=== PATIENT | male | born 1970 | race Caucasian/White ===

== ENCOUNTER 2020-07-22 07:49 | Outpatient (REF) | payer OTHER, SELFPAY | END 2020-07-22 07:50 | disposition home or self-care (01) | LOC: HO.LAB 07:49 | PROVIDERS: Visit Provider Internal Medicine | DX: Z20.828 Contact with and (suspected) exposure to other viral communicable diseases (principal) | CPT/HCPCS: C9803; U0003 ==

== ENCOUNTER 2020-12-18 06:12 | Outpatient (REF) | payer OTHER, SELFPAY ==
[2020-12-18 12:03] LABS: Alanine Aminotransferase 33 U/L (0-40); Albumin Level 4.3 g/dL (3.5-5.0); Alkaline Phosphatase 61 U/L (39-117); Anion Gap 13 (12-20); Aspartate Amino Transferase 19 U/L (5-37); Bilirubin Total 0.5 mg/dL (0.0-1.0); Blood Urea Nitrogen 14 mg/dL (9-16); Calcium 9.1 mg/dL (8.4-10.2); Carbon Dioxide 24 mmol/L (22-29); Chloride 105 mmol/L (96-108); Cholesterol 120 mg/dL; Estimated Glomerular Filt Rate > 60; Glucose Fasting 103 mg/dL (60-99); HDL Cholesterol 32 mg/dL; LDL Cholesterol Calculated 76 mg/dl; Potassium 4.4 mmol/L (3.3-5.1); Sodium 138 mmol/L (135-145); Triglycerides 62 mg/dL
[2020-12-18 12:24] LABS: TSH reflex Free T4 1.22 uIU/mL (0.32-4.0)
== END 2020-12-18 06:13 | disposition home or self-care (01) ==
LOC: HO.HMGCLDS 06:12
PROVIDERS: PCP Nurse Practitioner Family; Visit Provider Nurse Practitioner Family
DX: Z00.00 Encounter for general adult medical examination without abnormal findings (principal); Z13.220 Encounter for screening for lipoid disorders; Z13.29 Encounter for screening for other suspected endocrine disorder
CPT/HCPCS: 36415; 80053; 80061; 84443

== ENCOUNTER → 2020-12-30 13:47 | Outpatient (REF) | payer OTHER, SELFPAY ==
--- NOTE | 2020-12-30 14:05 | ECG_ITS ---
Hook-up date: 2020-12-30 14:00:00 Duration: 21:09:00 Test Indications: PALPITATIONS Medications: 48826 QRS complexes 1 Ventricular ectopics which represent <1 % of total QRS comp. 5 Supraventricular ectopics which represent <1 % of total QRS comp. * Paced QRS complexs which represent % of total QRS comp. VENTRICULAR ECTOPY 1 Isolated 0 Bigeminal Cycles 0 Couplets 0 Runs 0 Beats in Runs * Beats LONGEST at * BPM at :: -- * Beats FASTEST at * BPM at :: -- SUPRAVENTRICULAR ECTOPY 5 Isolated 0 Couplets 0 Runs 0 Beats in Runs * Beats LONGEST at * BPM at :: -- * Beats FASTEST at * BPM at :: -- HEART RATES 50 MIN at 01:04:29 2020-12-31 73 AVG 114 MAX at 05:52:17 2020-12-31 LONGEST RR 1.3040 secs at 01:04:23 2020-12-31 S-T LEVELS Channel 1 - 128 mm at 14:00:00 2020-12-30 - 128 mm at 14:00:00 2020-12-30 Channel 2 - 128 mm at 14:00:00 2020-12-30 - 128 mm at 14:00:00 2020-12-30 Channel 3 - 128 mm at 03:31:91 -- - 128 mm at 03:31:91 Underlying rhythm is sinus; Average rate 73/min; range 50-114/min; Very rare ectopy- (PAC-5; PVC-1) ; No sustained arrhythmias; Patient did not report any symptoms in the diary Referred By: Imer Jin Overread By: ISAEL MEANS
== END ==
LOC: HO.CARD 13:47
PROVIDERS: PCP Nurse Practitioner Family; Visit Provider Nurse Practitioner Family
DX: R00.2 Palpitations (principal)
CPT/HCPCS: 93225; 93226

== ENCOUNTER 2021-01-06 16:29 | Outpatient (REF) | payer OTHER, SELFPAY ==
--- NOTE | ~2021-01-06 | US_ITS ---
EXAMINATION: US SCROTUM CLINICAL INFORMATION: Scrotal pain. COMPARISON: Ultrasound scrotum 01/31/2009 TECHNIQUE: A sonogram of the scrotum was performed assessing pan-scale appearance and color Doppler flow. Spectral Doppler analysis of the arterial and venous flow were performed in the testes bilaterally. FINDINGS: RIGHT: Right testicle measures 3.6 x 2.0 x 2.8 cm, volume 10.4 mL. There is an anechoic cyst measuring 0.6 x 0.6 x 0.7 cm. Spectral Doppler analysis of the arterial and venous flow is normal in the right testis. Right epididymal head is normal in size. No right hydrocele or varicocele is seen. Right epididymal Doppler flow is normal. LEFT: Left testicle measures 2.9 x 2.3 x 2.9 cm, volume 9.8 mL. No focal testicular parenchymal lesions are visualized. Spectral Doppler analysis of the arterial and venous flow is normal in the left testis. Left epididymal head is normal in size. No left varicocele is seen. There is a small left hydrocele. Left epididymal Doppler flow is normal. US/US scrotum IMPRESSION: Right testicular small cyst. Otherwise, right testis and epididymis is unremarkable. Unremarkable left testis except for a small hydrocele. Left epididymis is unremarkable.
== END 2021-01-06 16:30 | disposition home or self-care (01) ==
LOC: HO.US 16:29
PROVIDERS: PCP Nurse Practitioner Family; Visit Provider Nurse Practitioner Family
DX: N50.82 Scrotal pain (principal)
CPT/HCPCS: 76870

== ENCOUNTER → 2021-02-04 14:51 | Outpatient (BNVA) | payer OTHER, SELFPAY | PROVIDERS: PCP Nurse Practitioner Family; Referring Provider Nurse Practitioner Family; Visit Provider Physician Assistant ==

== ENCOUNTER 2021-03-13 10:25 | Day surgery (SDC) | payer OTHER, SELFPAY ==
[2021-03-06 15:03] VITALS: BMI 33.6
--- NOTE | 2021-03-12 08:57 | HO.ANESPROP2 ---
Documented by User: Dona Dye 03/12/21 09:02 HPI - Anesthesia Eval Consult details Narrative: 50yo M for Colonoscopy PMFSH Active Problems Active Problems: All Active Problems (Updated 02/05/21 @ 09:23 by Shayy Monge PA-C) Scrotal pain (Acute) Whole body pain (Acute) Palpitations (Acute) Erectile dysfunction (Acute) Screening for colon cancer (Acute) HTN (hypertension) (Acute) Physical exam (Acute) Past Medical History Medical History Hernia Hypertension Family History Family History Father Heart attack Paternal Grandfather Heart attack Mother Diabetes Maternal Grandmother Colon cancer Social History Social History Household Members: Spouse Alcohol intake: never Patient Tobacco Use Status: Never used Tobacco Advance Directives: No Advance Directives Information Provided: No Current occupational status: employed 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 [employer] Allergies Allergy/AdvReac Type Severity Reaction Status Date / Time No Known Allergies Allergy Unverified 12/10/20 16:24 Home Medications Medication Instructions Recorded Confirmed Last Taken Type aspirin 81 mg tablet,delayed 81 mg PO DAILY 12/10/20 02/04/21 Unknown History release Exam Exam Date and Time: March 12, 2021 0857 Height,Weight and Vital Signs: Height 5 ft 11 in Weight 109.316 kg Pertinent Lab Results Pertinent Lab Results: Laboratory Tests 11/17/18 12/18/20 08:03 06:18 WBC 4.6 L Hgb 15.5 Hct 45.0 Plt Count 246 Sodium 138 Potassium 4.4 Chloride 105 Carbon Dioxide 24 BUN 14 Creatinine 0.79 1322 Narrative Narrative: Holter 12/2020 Underlying rhythm is sinus; Average rate 73/min; range 50-114/min; Very rare ectopy- (PAC-5; PVC-1) ; No sustained arrhythmias; Patient did not report any symptoms in the diary Assessment and Plan Assessment Anesthesia Assessment: Chart Reviewed Documented by User: Yuliet Waylon 03/13/21 10:38 PMF Past Medical History Medical History Hernia Hypertension Family History Family History Father Heart attack Paternal Grandfather Heart attack Mother Diabetes Maternal Grandmother Colon cancer Social History Social History Household Members: Spouse Alcohol intake: never Patient Tobacco Use Status: Never used Tobacco Advance Directives: No Advance Directives Information Provided: No Current occupational status: employed 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 Meds Allergies Allergy/AdvReac Type Severity Reaction Status Date / Time No Known Allergies Allergy Unverified 12/10/20 16:24 Home Medications Medication Instructions Recorded Confirmed Last Taken Type aspirin 81 mg tablet,delayed 81 mg PO DAILY 12/10/20 02/04/21 Unknown History release Exam Airway Mallampati Class: II TM Dist: >3cm Neck ROM: Full Heart: rrr Lungs: cta Assessment and Plan Assessment Anesthesia Assessment: Anesthesia Plan Discussed and Chart Reviewed Final Anesthetic Review NPO: Yes ASA Class: II Final Preanesthetic Review: No Changes in Pt Med Stat and Consent Obtained/Reviewed Patient Risk: Intermediate Procedure Risk: Intermediate Anesthetic Plan Anesthetic Plan: MAC: Disposition: Standard PACU
--- NOTE | 2021-03-13 10:49 | W.PM.OPN ---
Operative Note Operative Note Date of Service: 03/13/21 Narrative: Pre-op diagnosis: colon cancer screening, family history colon cancer (Mat GM in her 60's) Post-op diagnosis: other (Colon polyps, diverticulosis, hemorrhoids) Procedure: COLONOSCOPY TILL CECUM WITH BIOPSY AND SNARE POLYPECTOMY Consent: Indications for the procedure and potential complications of bleeding, perforation, reaction to medications and missed diagnosis were discussed with the patient and informed consent was obtained. Instrument: Olympus PCF H 190 L variable stiffness pediatric colonoscope Monitoring: Vital signs and clinical assessment, intermittent blood pressure monitoring, continuous EKG monitoring, Pulse oximetry and Carbon Dioxide monitoring were done throughout the procedure. Colon withdrawl time was 27 minutes. Procedure: The patient was placed in the left lateral decubitis position and pre-procedure medications were administered. After a digital rectal examination of the ano-rectum, the video colonoscope was inserted into the rectum and advanced through the colon to the cecum. The colonoscope was slowly withdrawn in a retrograde panoramic fashion and the colon mucosa was carefully examined including a retroflexed view of the rectum. Findings and interventions are described below. Procedure Difficulty: Without difficulty. There was excessive spasm in the colon during withdrawal of the colonoscopy Findings: Terminal Ileum: Not evaluated Cecum: Normal Ascending Colon: A 12-15 mm sessile polyp removed with a hot snare Transverse Colon: A 4-5 mm deminutive appearing polyp removed with the cold biopsy Descending Colon: moderate diverticulosis Sigmoid Colon: Moderate diverticulosis Rectum: A 12-15 mm sessile polyp removed with a hot snare Ano-rectum: Moderate internal hemorrhoids Colon preparation: Good after copious irrigation Impression and Post Procedure Diagnosis: Colonoscopy Findings: Three small to medium sized polyps removed Moderate diverticulosis seen in the left colon Moderate hemorrhoids on retroflexed exam. Plan: Await pathology results Patient has an appointment on 03/26/21 in the GI Clinic with JACK Andrade. Repeat Colonoscopy interval based on path results - in 3 years if polyps are adenomatous and 5 years if polyps are hyperplastic due to family hx of colon cancer. Above findings were reviewed with the patient and colon polyps and diverticulosis handouts were given in the discharge area Surgeon: Chacha Villegas MD Anesthesia: MAC (Adele Hunter CRNA) Was an Supervisor Delivery Department used for this Procedure?: Yes Supervisor Delivery Department: Luciano Jules Estimated blood loss (mL): 0 Pathology: other (A- ASCENDING COLON POLYP B- TRANSVERSE COLON POLYP C- RECTAL POLYP) Condition: stable Disposition: PACU
--- NOTE | 2021-03-13 10:49 | MHC.SHP ---
Pre-Procedural Eval Section A Date of Service: 03/13/21 The patient is an INPATIENT: No The History & Physical has been completed within 30 days and I have reviewed it.: No Section B Chief Complaint: Screening Details of Present Illness: colon cancer screening, family history of colon cancer (GM in her 60's) Relevant Family History (Specify if Yes): Yes Relevant Social History: None Present Medications: see Short Stay Collaborative assessment Medical History: Significant History (Hernia Hypertension) History of Previous Operations: No relevant previous surgery Allergies: Allergies Allergy/AdvReac Type Severity Reaction Status Date / Time No Known Allergies Allergy Verified 03/13/21 10:38 Review of Systems Sugical H&P ROS: Negative: Constitution, Cardiovascular, Respiratory and Gastrointestinal Exam Surgical H&P Exam: Normal: Heart, Normal: Lungs, Normal: Extremities and Normal: Abdomen Plan Diagnosis/Plan: Unchanged I have reviewed the history and physical and performed a pertinent physical examination on my patient. No changes have occurred unless specified.
[2021-03-13 10:51] VITALS: BP 128/90; PULSE 86; RESP 20; TEMP 37.6; O2SAT 97
[2021-03-13] MEDS: Lactated Ringers 1,000 ML 100 ML IVCONT (11:10)
[2021-03-13 12:53] VITALS: BP 99/62; PULSE 94; RESP 16; TEMP 36.8; O2SAT 94
[2021-03-13 13:08] VITALS: BP 113/76; PULSE 84; RESP 16; TEMP 36.8; O2SAT 97
== END 2021-03-13 13:33 | disposition home or self-care (01) ==
PROVIDERS: PCP Nurse Practitioner Family; Visit Provider Internal Medicine Gastroenterology
PROC: 0DJD8ZZ Inspection of Lower Intestinal Tract, Via Natural or Artificial Opening Endoscopic (ICD-10-PCS; CPT 45378; principal; 2021-03-13 11:30)
DX: Z12.11 Encounter for screening for malignant neoplasm of colon (principal); D12.2 Benign neoplasm of ascending colon; D12.8 Benign neoplasm of rectum; K63.5 Polyp of colon; K57.30 Diverticulosis of large intestine without perforation or abscess without bleeding; K64.8 Other hemorrhoids; I10 Essential (primary) hypertension; Z79.82 Long term (current) use of aspirin; Z79.899 Other long term (current) drug therapy
CPT/HCPCS: 45385; 45380; 88305; J2405

== ENCOUNTER → 2021-03-26 12:05 | Outpatient (BNVA) | payer OTHER, SELFPAY | PROVIDERS: PCP Nurse Practitioner Family; Visit Provider Physician Assistant ==

== ENCOUNTER 2021-06-29 16:12 | Emergency (ER) | payer OTHER, SELFPAY ==
--- NOTE | ~2021-06-29 | US_ITS ---
EXAMINATION: US VENOUS ULTRASOUND WITH DOPPLER LOWER EXTREMITY, LEFT CLINICAL INFORMATION: Swelling. COMPARISON: None TECHNIQUE: Ultrasound of the deep veins is performed from the hip to the calf with compression sonography and color and pulse Doppler assessment. Spectral analysis with color-flow imaging is performed. FINDINGS: There is normal venous compression and respiratory variation and augmented flow. The visualized common femoral vein, superficial femoral vein, profunda femoral vein, popliteal vein, and the trifurcation region shows no evidence of deep venous thrombosis. There is no significant popliteal fossa cyst. In the medial calf there is a hypoechoic linear area at the midcalf which on color Doppler does not demonstrate vascular flow. This area measures approximately 4 x 1 cm in size. Could be intermuscular hematoma in appropriate clinical setting. If the patient's symptoms persist, followup ultrasound in 5 days 7 days might be of value to exclude proximal propagation from a non-visualized calf vein. US/US venous duplex LE LT IMPRESSION: 1. No DVT demonstrated in the left lower extremity. 2. Hypoechoic area in the medial calf musculature. Possible intermuscular hematoma.
[2021-06-29 16:53] VITALS: BP 146/101; PULSE 73; RESP 16; TEMP 37.1; O2SAT 95; BMI 34.4
[2021-06-29 18:26] LABS: MANUAL DIFF FLAG NO
--- NOTE | 2021-06-29 18:27 | ED.GENADULT ---
HPI - General Adult General Chief complaint: Extremity Problem <JACK Garcia Last Filed: 06/29/21 19:08> Stated complaint: lower left leg pain and swollen <JACK Garcia Last Filed: 06/29/21 19:08> Time Seen by Provider: 06/29/21 18:06 <JACK Garcia Last Filed: 06/29/21 19:08> Source: patient <JACK Garcia Last Filed: 06/29/21 19:08> Mode of arrival: ambulatory <JACK Garcia Last Filed: 06/29/21 19:08> Limitations: no limitations <JACK Garcia Last Filed: 06/29/21 19:08> History of Present Illness HPI narrative: Patient presents to ED for left leg pain and swelling. Patient was referred from Urgent Care for ultrasound to rule out DVT. Patient states father from a blood clot. Patient presently denies any chest pain or shortness of breath. Patient denies any recent trauma to lower extremity, numbness/tingling, or any drug injection. Patient denies any recent long travel, recent surgery, recent trauma, history of blood clots, or any estrogen hormonal use. Patient denies any history of cancer. <JACK Garcia Last Filed: 06/29/21 19:08> Related Data Home medications: Home Medications Medication Instructions Recorded Confirmed aspirin 81 mg tablet,delayed 81 mg PO DAILY 12/10/20 03/26/21 release (Adult Low Dose Aspirin) Previous Rx's Medication Instructions Recorded amlodipine 5 mg tablet 5 mg PO DAILY #90 tab 01/12/21 sildenafil 25 mg tablet 25 mg PO DAILY PRN 10 Days #10 tab 06/05/21 <JACK Garcia Last Filed: 06/29/21 19:08> Allergies/adverse reactions: Allergies Allergy/AdvReac Type Severity Reaction Status Date / Time No Known Allergies Allergy Verified 06/29/21 17:58 <JACK Garcia Last Filed: 06/29/21 19:08> Review of Systems Review of Systems: Yes all other systems are reviewed and are negative <JACK Garcia Last Filed: 06/29/21 19:08> Constitutional: Constitutional: Reports as per HPI and Reports no additional constitutional complaints <JACK Garcia Last Filed: 06/29/21 19:08> Eyes: Eyes: Reports as per HPI and Reports no additional eye complaints <JACK Garcia Last Filed: 06/29/21 19:08> ENT: Reports system reviewed and no additional complaints, except as documented and Reports as per HPI <JACK Garcia Last Filed: 06/29/21 19:08> Cardiovascular: Cardiovascular: Reports as per HPI and Reports no additional cardiovascular complaints <JACK Garcia Last Filed: 06/29/21 19:08> Respiratory: Respiratory: Reports as per HPI and Reports no additional respiratory complaints <JACK Garcia Last Filed: 06/29/21 19:08> Gastrointestinal: Gastrointestinal: Reports as per HPI and Reports no additional gastrointestinal complaints <JACK Garcia Last Filed: 06/29/21 19:08> Genitourinary: Genitourinary: Reports no additional male genitourinary complaints and Reports as per HPI <JACK Garcia Last Filed: 06/29/21 19:08> Musculoskeletal: Musculoskeletal: Reports no additional musculoskeletal complaints <JACK Garcia Last Filed: 06/29/21 19:08> Comments: left leg swelling <JACK Garcia Last Filed: 06/29/21 19:08> Neurologic: Reports system reviewed and no additional complaints, except as documented and Reports as per HPI <JACK Garcia Last Filed: 06/29/21 19:08> Psychiatric: Psychiatric: Reports no additional psychiatric complaints and Reports as per HPI <JACK Garcia Last Filed: 06/29/21 19:08> [facility] Past Medical History Medical History: Medical History Hernia Hypertension <JACK Garcia Last Filed: 06/29/21 19:08> Family History Family History: Family History Father Heart attack Paternal Grandfather Heart attack Mother Diabetes Maternal Grandmother Colon cancer <JACK Garcia Last Filed: 06/29/21 19:08> Social History Social History: Social History Household Members: Spouse Alcohol intake: never Patient Tobacco Use Status: Never used Tobacco Advance Directives: No Advance Directives Information Provided: Yes Current occupational status: employed 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 <JACK Garcia Last Filed: 06/29/21 19:08> Physical Exam Vital Signs: Vital Signs: Last Vital Signs Temp 98.7 F 06/29/21 16:53 Pulse 73 06/29/21 16:53 Resp 16 06/29/21 16:53 BP 146/101 H 06/29/21 16:53 Pulse Ox 95 06/29/21 16:53 Body Mass Index 34.4 <JACK Garcia Last Filed: 06/29/21 19:08> Vital Signs: Last Vital Signs Temp 98.7 F 06/29/21 16:53 Pulse 73 06/29/21 16:53 Resp 16 06/29/21 16:53 BP 146/101 H 06/29/21 16:53 Pulse Ox 95 06/29/21 16:53 Body Mass Index 34.4 <JACK Hoyos - Last Filed: 06/29/21 21:02> Const: General: cooperative, healthy appearing, comfortable, no acute distress, well developed, alert, awake and Physically active <JACK Garcia Last Filed: 06/29/21 19:08> Orientation/consciousness: patient oriented x3 <JACK Garcia Last Filed: 06/29/21 19:08> HENMT: Head: Yes normal to inspection, Yes No palpable skull fracture present, Yes normocephalic, Yes atraumatic and No abrasion <JACK Garcia Last Filed: 06/29/21 19:08> Eyes: General: appearance normal, both eyes and all related structures <JACK Garcia Last Filed: 06/29/21 19:08> Neck: Neck: Yes normal visual inspection, Yes full ROM, Yes no lymphadenopathy, Yes no meningeal signs, Yes trachea midline, Yes supple, No anterior neck swelling and No tender <JACK Garcia Last Filed: 06/29/21 19:08> Chest: Chest palpation & inspection: normal inspection of the chest and normal palpation of entire chest wall <Khari De Luna JACK Last Filed: 06/29/21 19:08> Resp: Effort & Inspection: normal respiratory effort and able to speak in complete sentences <Khari De Luna JACK Last Filed: 06/29/21 19:08> Auscultation: clear to auscultation bilaterally <JACK Garcia Last Filed: 06/29/21 19:08> Cardio: Jugular venous distension: no JVD <Khari De Luna JACK Last Filed: 06/29/21 19:08> Heart sounds: S1 normal heart sound present and S2 normal heart sound present <Khari De Luna JACK Last Filed: 06/29/21 19:08> GI: Inspection: Yes normal to inspection and No abdominal wall ecchymosis <Khari De Luna [facility] Last Filed: 06/29/21 19:08> Palpation (GI): Soft to palpation, not firm, nontender, no guarding and not rigid <Khari De Luna JACK Last Filed: 06/29/21 19:08> : General: No CVA tenderness and Yes no CVA tenderness <Khari De Luna JACK Last Filed: 06/29/21 19:08> Back/Spine/Pelvis: Back: no CVA tenderness, No CVA tenderness and No back tenderness <Khari De Luna JACK Last Filed: 06/29/21 19:08> Skin: General skin exam: no rashes or lesions noted and elasticity normal <Khari De Luna JACK Last Filed: 06/29/21 19:08> Neuro: General: patient oriented x3, gait normal, no meningeal signs and CN's II-XI intact bilaterally <Khari De Luna JACK Last Filed: 06/29/21 19:08> Cranial nerves: Yes CN's II-XII intact bilaterally <Khari De Luna JACK Last Filed: 06/29/21 19:08> Extrem: Other: Positive for left lower extremity swelling with calf tenderness on palpation. Left lower extremity negative for any redness, warmth, hotness, coldness, ecchymosis, bluish black discoloration of toes, open wounds, pus discharge, or foul odor. Motor/neuro/vascular exam intact. Right lower extremity normal and not swollen. Motor/neuro/vascular exam of right lower extremity intact. <JACK Garcia - Last Filed: 06/29/21 19:08> General: Yes normal to inspection and Yes full ROM <JACK Garcia - Last Filed: 06/29/21 19:08> Psych: Appearance: grossly normal, well kempt and not disheveled <JACK Garcia - Last Filed: 06/29/21 19:08> Course Course Course Narrative: Patient will have basic labs and be sent for ultrasound to rule out DVT. History physical exam does not indicate any fracture, cellulitis, or CHF. <JACK Garcia - Last Filed: 06/29/21 19:08> Reevaluation(s) Reevaluation #1: Case signed out to JACK Camacho to follow up with labs and US. <JACK Garcia - Last Filed: 06/29/21 19:08> Time: 18:57 <JACK Garcia - Last Filed: 06/29/21 19:08> Medical Decision Making MDM Narrative Medical decision making narrative: Contusion <JACK Garcia - Last Filed: 06/29/21 19:08> Lab Data Result diagrams: : 06/29/21 18:20 06/29/21 18:20 <JACK Garcia - Last Filed: 06/29/21 19:08> Labs: Lab Results 06/29/21 06/29/21 06/29/21 Range/Units 18:20 18:20 18:20 WBC 7.1 (4.8-10.8) X10*3/uL RBC 5.13 (4.60-5.80) X10*6/uL Hgb 15.2 (14.0-18.0) g/dl Hct 45.2 (42-52) % MCV 88.1 (80-98) fL MCH 29.6 (27.0-33.0) pg MCHC 33.6 (31.0-36.0) g/dl RDW 13.7 (11.0-16.0) % Plt Count 291 (160-400) X10*3/uL MPV 10.0 (9.4-12.4) fL Immature Gran % (Auto) 0.6 H (0.0-0.4) % Neut % (Auto) 52.8 (45-73) % Lymph % (Auto) 31.4 (20-40) % [place] % (Auto) 11.9 H (2-11) % Eos % (Auto) 2.0 (0-4) % Baso % (Auto) 1.3 (0-2) % Lymph # (Auto) 2.2 (1.2-4.9) X10*3/uL [place] # (Auto) 0.8 (0.1-1.2) X10*3/uL Eos # (Auto) 0.1 (0.0-0.4) X10*3/uL Baso # (Auto) 0.1 (0.0-0.2) X10*3/uL Abs Immat Gran (auto) 0.04 H (0.00-0.03) X10*3/uL Absolute Neuts (auto) 3.8 (2.0-8.3) X10*3/uL Absolute Nucleated RBC 0.000 (0.0-0.012) X10*3/uL Nucleated RBC % (auto) 0.0 (0.0-0.2) /100WBC PT 11.2 (9.9-13.0) SEC INR 1.0 (0.9-1.1) APTT 35.6 (24.1-38.0) SEC Sodium 140 (135-145) mmol/L Potassium 4.0 (3.3-5.1) mmol/L Chloride 109 H (96-108) mmol/L Carbon Dioxide 23 (22-29) mmol/L Anion Gap 12 (12-20) BUN 11 (9-16) mg/dL Creatinine 0.73 (0.5-1.4) mg/dL Estim Creat Clear Calc 149.5 Estimated GFR > 60 Random Glucose 90 (60-115) mg/dL Calcium 9.3 (8.4-10.2) mg/dL Total Bilirubin 0.6 (0.0-1.0) mg/dL AST 18 (5-37) U/L ALT 31 (0-40) U/L Alkaline Phosphatase 63 (39-117) U/L Total Protein 6.9 (6.5-8.0) g/dL Albumin 4.3 (3.5-5.0) g/dL <JACK Garcia - Last Filed: 06/29/21 19:08> Lab Results 06/29/21 06/29/21 06/29/21 Range/Units 18:20 18:20 18:20 WBC 7.1 (4.8-10.8) X10*3/uL RBC 5.13 (4.60-5.80) X10*6/uL Hgb 15.2 (14.0-18.0) g/dl Hct 45.2 (42-52) % MCV 88.1 (80-98) fL MCH 29.6 (27.0-33.0) pg MCHC 33.6 (31.0-36.0) g/dl RDW 13.7 (11.0-16.0) % Plt Count 291 (160-400) X10*3/uL MPV 10.0 (9.4-12.4) fL Immature Gran % (Auto) 0.6 H (0.0-0.4) % Neut % (Auto) 52.8 (45-73) % Lymph % (Auto) 31.4 (20-40) % [place] % (Auto) 11.9 H (2-11) % Eos % (Auto) 2.0 (0-4) % Baso % (Auto) 1.3 (0-2) % Lymph # (Auto) 2.2 (1.2-4.9) X10*3/uL [place] # (Auto) 0.8 (0.1-1.2) X10*3/uL Eos # (Auto) 0.1 (0.0-0.4) X10*3/uL Baso # (Auto) 0.1 (0.0-0.2) X10*3/uL Abs Immat Gran (auto) 0.04 H (0.00-0.03) X10*3/uL Absolute Neuts (auto) 3.8 (2.0-8.3) X10*3/uL Absolute Nucleated RBC 0.000 (0.0-0.012) X10*3/uL Nucleated RBC % (auto) 0.0 (0.0-0.2) /100WBC PT 11.2 (9.9-13.0) SEC INR 1.0 (0.9-1.1) APTT 35.6 (24.1-38.0) SEC Sodium 140 (135-145) mmol/L Potassium 4.0 (3.3-5.1) mmol/L Chloride 109 H (96-108) mmol/L Carbon Dioxide 23 (22-29) mmol/L Anion Gap 12 (12-20) BUN 11 (9-16) mg/dL Creatinine 0.73 (0.5-1.4) mg/dL Estim Creat Clear Calc 149.5 Estimated GFR > 60 Random Glucose 90 (60-115) mg/dL Calcium 9.3 (8.4-10.2) mg/dL Total Bilirubin 0.6 (0.0-1.0) mg/dL AST 18 (5-37) U/L ALT 31 (0-40) U/L Alkaline Phosphatase 63 (39-117) U/L Total Protein 6.9 (6.5-8.0) g/dL Albumin 4.3 (3.5-5.0) g/dL <JACK Hoyos - Last Filed: 06/29/21 21:02> Discharge Plan Discharge Clinical Impression: Leg swelling <JACK Garcia - Last Filed: 06/29/21 19:08> Prescriptions: No Action amlodipine 5 mg tablet 5 mg PO DAILY Qty: 90 RF: 1 sildenafil 25 mg tablet 25 mg PO DAILY PRN (Reason: sexual activity) 10 Days Qty: 10 RF: 4 aspirin [Adult Low Dose Aspirin] 81 mg tablet,delayed release (DR/EC) 81 mg PO DAILY RF: 0 <JACK Garcia - Last Filed: 06/29/21 19:08>
[2021-06-29 18:28] LABS: Basophils Absolute Auto 0.1 X10*3/uL (0.0-0.2); Basophils Percent Auto 1.3 % (0-2); Eosinophils Absolute Auto 0.1 X10*3/uL (0.0-0.4); Hematocrit 45.2 % (42-52); Hemoglobin 15.2 g/dl (14.0-18.0); Imm Gran Abs Auto 0.04 X10*3/uL (0.00-0.03); Imm Gran Pct Auto 0.6 % (0.0-0.4); Lymphocytes Absolute Auto 2.2 X10*3/uL (1.2-4.9); Lymphocytes Percent Auto 31.4 % (20-40); Mean Corpuscular HGB Conc 33.6 g/dl (31.0-36.0); Mean Corpuscular Hemoglobin 29.6 pg (27.0-33.0); Mean Corpuscular Volume 88.1 fL (80-98); Monocytes Absolute Auto 0.8 X10*3/uL (0.1-1.2); Monocytes Percent Auto 11.9 % (2-11); Neutrophils Absolute Auto 3.8 X10*3/uL (2.0-8.3); Neutrophils Percent Auto 52.8 % (45-73); Platelet Count 291 X10*3/uL (160-400); Red Blood Count 5.13 X10*6/uL (4.60-5.80); Red Cell Distribution Width 13.7 % (11.0-16.0); White Blood Count 7.1 X10*3/uL (4.8-10.8)
[2021-06-29 18:32] LABS: Prothrombin Time 11.2 SEC (9.9-13.0)
[2021-06-29 18:35] LABS: Partial Thromboplastin Time 35.6 SEC (24.1-38.0)
[2021-06-29 18:42] LABS: Alanine Aminotransferase 31 U/L (0-40); Albumin Level 4.3 g/dL (3.5-5.0); Alkaline Phosphatase 63 U/L (39-117); Anion Gap 12 (12-20); Aspartate Amino Transferase 18 U/L (5-37); Bilirubin Total 0.6 mg/dL (0.0-1.0); Blood Urea Nitrogen 11 mg/dL (9-16); Calcium 9.3 mg/dL (8.4-10.2); Carbon Dioxide 23 mmol/L (22-29); Chloride 109 mmol/L (96-108); Creatinine Clr Calc Pharmacy 149.5; Estimated Glomerular Filt Rate > 60; Glucose Random 90 mg/dL (60-115); Sodium 140 mmol/L (135-145); Total Protein 6.9 g/dL (6.5-8.0)
== END 2021-06-29 21:41 | disposition home or self-care (01) ==
PROVIDERS: Physician Assistant; Emergency Provider Emergency Medicine; PCP Nurse Practitioner Family
DX: M79.89 Other specified soft tissue disorders (principal); M79.605 Pain in left leg; I10 Essential (primary) hypertension
CPT/HCPCS: 36415; 80053; 85025; 85610; 85730; 93971; 99283; 99284

== ENCOUNTER → 2021-07-08 08:28 | Outpatient (BNVA) | payer OTHER, SELFPAY | PROVIDERS: PCP Nurse Practitioner Family; Visit Provider Urology ==

== ENCOUNTER 2022-06-11 07:20 | Outpatient (REF) | payer OTHER, SELFPAY ==
[2022-06-11 11:17] LABS: MANUAL DIFF FLAG NO
[2022-06-11 11:34] LABS: Basophils Absolute Auto 0.1 X10*3/uL (0.0-0.2); Basophils Percent Auto 1.6 % (0-2); Eosinophils Absolute Auto 0.1 X10*3/uL (0.0-0.4); Eosinophils Percent Auto 2.8 % (0-4); Hematocrit 45.5 % (42.0-52.0); Hemoglobin 14.9 g/dl (14.0-18.0); Imm Gran Abs Auto 0.02 X10*3/uL (0.00-0.03); Imm Gran Pct Auto 0.5 % (0.0-0.4); Lymphocytes Absolute Auto 1.5 X10*3/uL (1.2-4.9); Lymphocytes Percent Auto 34.9 % (20-40); Mean Corpuscular HGB Conc 32.7 g/dl (31.0-36.0); Mean Corpuscular Hemoglobin 29.3 pg (27.0-33.0); Mean Corpuscular Volume 89.4 fL (80.0-98.0); Mean Platelet Volume 10.6 fL (9.4-12.4); Monocytes Absolute Auto 0.5 X10*3/uL (0.1-1.2); Neutrophils Absolute Auto 2.1 x10*3/uL (2.0-8.3); Neutrophils Percent Auto 49.2 % (45-73); Platelet Count 310 X10*3/uL (160-400); Red Blood Count 5.09 X10*6/uL (4.60-5.80); Red Cell Distribution Width 13.5 % (11.0-16.0); White Blood Count 4.4 X10*3/uL (4.8-10.8)
[2022-06-11 11:47] LABS: Appearance Urine Cloudy; Color Urine Yellow; Glucose Urine UA Negative (Negative); Leukocyte Esterase Urine Negative (Negative); Nitrite Urine Negative (Negative); PH 7.5 (5.0-9.0); Urine Blood Negative (Negative); Urine Ketones Negative (Negative); Urine Protein Negative (Neg-Trace)
[2022-06-11 11:57] LABS: Alanine Aminotransferase 27 U/L (0-40); Albumin Level 4.4 g/dL (3.5-5.0); Alkaline Phosphatase 62 U/L (39-117); Anion Gap 12 (12-20); Aspartate Amino Transferase 16 U/L (5-37); Bilirubin Total 0.5 mg/dL (0.0-1.0); Blood Urea Nitrogen 13 mg/dL (9-16); Calcium 9.1 mg/dL (8.4-10.2); Carbon Dioxide 24 mmol/L (22-29); Chloride 107 mmol/L (96-108); Cholesterol 147 mg/dL; Estimated Glomerular Filt Rate > 60; Glucose Fasting 112 mg/dL (60-99); HDL Cholesterol 37 mg/dL; LDL Cholesterol Calculated 100 mg/dl; Potassium 4.2 mmol/L (3.3-5.1); Sodium 139 mmol/L (135-145); Total Protein 6.8 g/dL (6.5-8.0); Triglycerides 54 mg/dL
[2022-06-11 12:00] LABS: Prostate Specific Antigen Scr 0.62 ng/mL (<0.05-4.0); TSH reflex Free T4 1.15 uIU/mL (0.32-4.0)
== END 2022-06-11 07:21 | disposition home or self-care (01) ==
LOC: HO.HMGCLDS 07:20
PROVIDERS: PCP Nurse Practitioner Family; Visit Provider Nurse Practitioner Family
DX: Z00.00 Encounter for general adult medical examination without abnormal findings (principal); Z12.5 Encounter for screening for malignant neoplasm of prostate
CPT/HCPCS: 36415; 80053; 80061; 81003; 84153; 84443; 85025

== ENCOUNTER 2022-06-25 14:29 | Outpatient (REF) | payer OTHER, SELFPAY ==
--- NOTE | ~2022-06-25 | US_ITS ---
EXAMINATION: US SCROTUM CLINICAL INFORMATION: Scrotal pain. COMPARISON: Ultrasound scrotum 01/06/2021 and 01/31/2009. TECHNIQUE: A sonogram of the scrotum was performed assessing pan-scale appearance and color Doppler flow. Spectral Doppler analysis of the arterial and venous flow were performed in the testes bilaterally. FINDINGS: RIGHT: Right testicle measures 3.41 x 1.90 x 3.41 cm, volume 11.5 mL. There is a 0.7 x 0.6 x 0.8 cm simple cyst in the right testicle. This is similar to previous most recent exam from 2020 but new from 2008 exam no other focal testicular parenchymal lesions are visualized. Spectral Doppler analysis of the arterial and venous flow is normal in the right testis. Right epididymal head is normal in size. Right epididymal Doppler flow is normal. No hydrocele. Small right varicocele. LEFT: Left testicle measures 3.03 x 2.20 x 2.38 cm, volume 8.32 mL. No focal testicular parenchymal lesions are visualized. Spectral Doppler analysis of the arterial and venous flow is normal in the left testis. Left epididymal head is normal in size. Left epididymal Doppler flow is normal. Small hydrocele. Small left varicocele. US/US scrotum IMPRESSION: 0.7 cm simple cyst in the right testicle unchanged from 2020 exam. Small bilateral varicoceles and small left hydrocele.
== END 2022-06-25 14:30 | disposition home or self-care (01) ==
LOC: HO.HMGCX 14:29
PROVIDERS: PCP Nurse Practitioner Family; Visit Provider Nurse Practitioner Family
DX: N50.82 Scrotal pain (principal)
CPT/HCPCS: 76870

== ENCOUNTER 2023-01-20 11:57 | Outpatient (REF) | payer OTHER, SELFPAY ==
--- NOTE | ~2023-01-20 | XR_ITS ---
EXAMINATION: XR LUMBOSACRAL SPINE CLINICAL INFORMATION: Pain COMPARISON: CT abd and pel 2018 TECHNIQUE: Three views of the lumbosacral spine. FINDINGS: Mild anterior subluxation of L4 with respect L5. Bone alignment is otherwise normal. No fracture or dislocation. Degenerative disc disease at L5-S1. Lower lumbar spine facet arthritis. Right renal stone. XR/XR lumbar spine 2-3V IMPRESSION: Degenerative changes.
== END 2023-01-20 11:58 | disposition home or self-care (01) ==
LOC: HO.HMGCX 11:57
PROVIDERS: PCP Nurse Practitioner Family; Visit Provider Nurse Practitioner Family
DX: M54.50 Low back pain, unspecified (principal)
CPT/HCPCS: 72100

== ENCOUNTER 2023-09-07 15:31 | Outpatient (AMB) | payer OTHER, SELFPAY ==
--- NOTE | 2023-09-07 15:49 | MHC.PC.OV ---
Vital Signs 09/07/23 15:52 Height 5 ft 10 in Weight 241 lb BMI 34.6 BP 120/82 Blood Pressure Location Rt brachial Position Sitting Pulse 72 Pulse Source Pulse Oximeter Pulse Oximetry (%) 98 Oxygen Delivery Method Room Air Intake Visit Reasons: Annual Physical Intake Note: Patient here for physical exam. no new issues or concerns. Allergies No Known Allergies Allergy (Verified 09/07/23 15:52) Medication List - Last Reconciled 09/07/23 by ROSALBA Lindsay amlodipine 5 mg PO DAILY aspirin (Adult Low Dose Aspirin) 81 mg PO DAILY clotrimazole-betamethasone 1-0.05 % 1 appl topical BID 4 weeks sildenafil 100 mg PO DAILY PRN Tobacco use date assessed: 09/07/23 Dental Screening Dental Screen Date: 09/07/23 Did you have a dental visit in the last 12 months?: Yes Did you have a dental problem in the last 6 months where you did not have access to dental care?: No Was dental information given to patient?: Patient has dentist HPI Annual Physical HPI Details here for a PE. labs ordered, including PSA. colon screen is up to date. pt does report intermittent Chest pressure, which does not radiate. Pt reports being under more stress lately, and reports more freq anxiety. Will get a EKG in the office today. HPI Comments History of Present Illness Details Pt is here for a PE. 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 39574 - PHQ-9 Billing: Patient declined-do not bill Source: Developed by Drs. Erasmo Dee, Sameera De La Vega, Cl Davis and colleagues, with an educational krystyna from [employer]. Thrive Questionnaire Date Thrive assessed: 09/07/23 What is your living situation today?: I choose not to answer this question Within the past 12 months, did the food you bought not last and you didn't have the money to get more?: I choose not to answer this question Within the past 12 months, did you worry whether your food would run out before you got money to buy more?: I choose not to answer this question Do you have trouble paying for medicines?: I choose not to answer this question Do you have trouble getting transportation to medical appointments?: I choose not to answer this question Do you have trouble paying your heating and electricity bill?: I choose not to answer this question Do you have trouble taking care of your child, family member or friend?: I choose not to answer this question Do you have trouble with day-to-day activities such as bathing, preparing meals, shopping, managing finances, etc.?: I choose not to answer this question Are you currently unemployed and looking for a job?: I choose not to answer this question Are you interested in more education?: I choose not to answer this question Currently or been in a relationship where the following occur: I choose not to answer this question AUDIT C Alcohol Use Questionnaire (AUDIT-C) 1. How often do you have a drink containing alcohol?: Never 3. How often do you have six or more drinks on one occasion?: Never Total Score: 0 Score Reviewed/Action Taken: No XIANG-7 AMB Questionnaire XIANG-7 Date XIANG - 7 assessed: 09/07/23 Source: Developed by Drs. Erasmo Dee, Sameera De La Vega, Cl Davis and colleagues, with an educational krystyna from [employer]. XIANG-7 Assessment Billing XIANG-7 Assessment Tool: pt declined-do not bill Review of Systems Const Denies chills and Denies fever(s) Eyes Denies blurry vision ENT Denies vertigo, Denies dizziness and Denies sore throat Card Denies chest pain at rest, Denies chest pain with activity, Denies diaphoresis, Denies dyspnea and Denies dyspnea on exertion Resp Denies cough, Denies dyspnea, Denies dyspnea on exertion and Denies wheezing GI Denies abdominal pain, Denies melena, Denies hematochezia, Denies constipation, Denies diarrhea and Denies loose stools Denies hematuria Musc Denies numbness and Denies tingling Skin/Breast Denies lesions Neuro Denies vertigo, Denies dizziness, Denies numbness and Denies tingling Psych Denies anxiety, Denies depression, Denies homicidal ideation, Denies suicidal ideation and Denies other (substance abuse) Aller/Immun Denies wheezing Physical exam (Primary Care) Vital Signs: Last Vital Signs Pulse 72 09/07/23 15:52 BP 120/82 09/07/23 15:52 Pulse Ox 98 09/07/23 15:52 Oxygen Delivery Method Room Air 09/07/23 15:52 BMI result Body Mass Index 34.6 Tobacco/Smoking Status: Tobacco use Status Tobacco use date assessed 09/07/23 09/07/23 15:54 Patient Tobacco Use Status Never used Tobacco 09/07/23 15:51 e-Cigarette/Vaping Use Never Used 09/07/23 15:51 Thrive Assessment: Date of Thrive Assessment Date Thrive assessed 06/07/22 09/07/23 15:51 Currently or been in a relationship where the following occur: I choose not to answer this question Const General: cooperative Nutritional Appearance: well nourished and obese Orientation/consciousness: patient oriented x3 HENMT Head: Yes normal to inspection, Yes normocephalic and Yes atraumatic Ears: TM normal on the right and TM normal on the left Eyes General: appearance normal, both eyes and all related structures Alignment and Position: alignment normal and position normal Neck Neck: Yes normal visual inspection and Yes no lymphadenopathy Resp Effort & Inspection: normal respiratory effort Auscultation: clear to auscultation bilaterally Cardio Rate: regular rate Rhythm: regular rhythm Heart sounds: S1 normal heart sound present, S2 normal heart sound present and no murmurs GI Palpation (GI): Soft to palpation and nontender Auscultation: normal bowel sounds Male General Exam: Yes normal external exam Penis: normal penis Scrotum: scrotum normal, testes descended bilaterally and no inguinal hernias Testes: no testicular mass Skin Rashes: no rashes Neuro General: patient oriented x3, moves all extremities, no focal motor deficits and deep tendon reflexes 2+ bilaterally Romberg Test: Negative Extrem Right lower extremity: no edema Left lower extremity: no edema Psych Affect: normal affect Attitude: cooperative Thought process: Normal thought process present Assessment and Plan Assessment & Plan (1) Physical exam: Code(s): Z00.00 - Encounter for general adult medical examination without abnormal findings (2) Screening for prostate cancer: Code(s): Z12.5 - Encounter for screening for malignant neoplasm of prostate (3) Chest pressure: Code(s): R07.89 - Other chest pain Plan: echo ordered, ekg done in room (4) Family history of heart disease: Code(s): Z82.49 - Family history of ischemic heart disease and other diseases of the circulatory system Plan: echo ordered, EKG in office (5) Colon adenoma: Comment: Family history colon cancer, Repeat colonoscopy march 2024 All first-degree relatives should begin screening no later than age 40 Code(s): D12.6 - Benign neoplasm of colon, unspecified Orders: Orders Comprehensive [place]. Panel Fast Today Z00.00 - Encounter for general adult medical examination without abnormal findings TSH reflex Free T4 Today Z00.00 - Encounter for general adult medical examination without abnormal findings UA CC w/rflx Micro + Cult Today Z00.00 - Encounter for general adult medical examination without abnormal findings Prostate Specific Antigen Scr Today Z12.5 - Encounter for screening for malignant neoplasm of prostate CA echo transthoracic complete Today R07.89 - Other chest pain, Z82.49 - Family history of ischemic heart disease and other diseases of the circulatory system Complete Blood Count Auto Diff Today Z00.00 - Encounter for general adult medical examination without abnormal findings Lipid Panel Today Z00.00 - Encounter for general adult medical examination without abnormal findings Referrals Gastroenterology Referral D12.6 - Benign neoplasm of colon, unspecified Medications: New clotrimazole-betamethasone 1-0.05 % 1 appl topical BID 4 weeks 45 grams 3RF Coding Level of Care Code Est Pt Prev Care 40-64y(43360) Diagnoses Physical exam Z00.00 Screening for prostate cancer Z12.5 Chest pressure R07.89 Family history of heart disease Z82.49 Colon adenoma D12.6
[2023-09-07 15:52] VITALS: BP 120/82; PULSE 72; O2SAT 98; BMI 34.6
== END 2023-09-07 16:48 | disposition home or self-care (01) ==
PROVIDERS: PCP Nurse Practitioner Family; Visit Provider Nurse Practitioner Family
DX: Z00.00 Encounter for general adult medical examination without abnormal findings (principal); Z12.5 Encounter for screening for malignant neoplasm of prostate; R07.89 Other chest pain; Z82.49 Family history of ischemic heart disease and other diseases of the circulatory system; D12.6 Benign neoplasm of colon, unspecified
CPT/HCPCS: 99396

== ENCOUNTER → 2023-09-28 15:44 | Outpatient (REF) | payer OTHER, SELFPAY ==
--- NOTE | 2023-09-28 15:48 | CA_ITS ---
Transthoracic Echocardiogram Patient (Last, First, Middle): Erasmo Villela L Gender: Male Date of : 1970 Age: 53 Procedure Date: 09/28/2023 Procedure Type: Transthoracic Echocardiogram Location: OP Height: 180.34 cm Weight: 113.4 kg BSA: 2.32 m2 Heart Rate: bpm BP: 128 / 84 mmHg Information Technology Director: Referring MD: Imer Jin [facility] Symptoms: R07.89 - Other chest pain Study Quality: Fair ECG Rhythm: Sinus Conclusions: - 1. Normal LV ejection fraction 60 65% with mild LVH with grade 1 diastolic dysfunction 2. Cardiac valvular Dopplers within normal limits 3. Upper limits of normal ascending aortic size 4. Normal RV systolic pressure 5. No pericardial effusion Findings Left Ventricle Normal left ventricular size and systolic function. There is mildly increased left ventricular wall thickness. The visually estimated ejection fraction is between 60-65%. Spectral Doppler is indicative of an impaired relaxation filling pattern. E/E prime ratio is <8, consistent with normal filling pressures. Evidence suggests grade I (mild) diastolic dysfunction. Right Ventricle Normal right ventricular cavity size and systolic function. Aortic Valve Normal aortic valve structure and function. There is no aortic valve stenosis. There is no aortic valve regurgitation. Mitral Valve Normal mitral valve structure and function. There is trace mitral valve regurgitation. There is no mitral valve stenosis. Pulmonic Valve The pulmonic valve is likely normal. Tricuspid Valve Normal tricuspid valve structure. There is trace tricuspid valve regurgitation. The right ventricular systolic pressure is normal. The right ventricular systolic pressure is 24 mmHg. Normal right atrial pressure. There is no evidence of pulmonary hypertension. Great Vessels The pulmonary artery was not well visualized. Venous The inferior vena cava is normal in size and collapses greater than 50% with inspiration. Pericardium/Pleural There is no evidence of pericardial effusion. Measurements 2D Linear Measurements IVSd: 1.31 0.6-0.9/0.6-1.0 cm LVIDd: 4.76 3.9-5.3/4.2-5.9 cm LVIDd Index: 2.05 2.4-3.2/2.2-3.1 cm/m2 LVIDs: 3.00 2.0-3.6 cm LVPWd: 1.21 0.7-1.1 cm Ao Root: 3.20 2.1-3.5 cm LA Diam: 4.20 2.7-3.8/3.0-4.0 cm LAIDs Index: 1.81 1.5-2.3 cm/m2 LV Mass: 289.10 67-162/88-224 g LV Mass Index: 124.61 43-95/49-115 g/m2 LVOT Diam: 2.40 3.0+(-)1.3 cm 2D Systolic Function EF 4C: 63.50 >55% EF 2C: 60.30 >55% EF BiP: 61.50 >55% Mitral Valve MV Pk E: 0.69 MV PK A: 0.86 MV Decel Time: 203.00 E/A: 0.80 E'Lateral: 9.25 E'Medial: 7.94 E/E' Med: 8.70 E/E' Lat: 7.50 PHT: 60.00 MVA PHT: 3.67 Decel [place]: 3.42 Aortic Valve AoV Pk Adria: 1.39 AoV Mn Adria: 0.93 AoV VTI: 0.27 AoV Pk Grad: 8.00 Aov Mn Grad: 4.00 JEANETTE Cont.VTI: 3.05 LVOT LVOT Pk Adria: 1.00 LVOT Mn Adria: 0.58 LVOT VTI: 0.18 LVOT Pk Grad: 4.00 LVOT Mn Grad: 2.00 LVOT Diam: 2.40 LVOT Area: 4.52 Diastolic Function MV Pk E: 0.69 MV Pk A: 0.86 E/A: 0.80 E'Medial: 7.94 E/E' Med: 8.70 E' Laterial: 9.25 E/E' Lat: 7.50 Right Ventricle TAPSE (mm): 25.00 TVS' Adria: 16.00 Tricuspid Valve TR Pk Adria: 2.30 TR Pk Grad: 21.00 RA Press: 3.00 RVSP: 24.00 Great Vessels Aorta Ao Root-2D: 3.20 2.0-3.7 cm Ao Asc: 3.60 2.1-3.4 cm Pulmonary Valve PV Pk Adria: 1.12 Peak PV Grad: 5.00 Updated in Other Vendor System with Status of Final Margarito Pacheco MD electronically signed on 09/29/2023 9:50:29 AM with status of Final
== END ==
LOC: HO.CARD 15:44
PROVIDERS: PCP Nurse Practitioner Family; Visit Provider Nurse Practitioner Family
DX: R07.89 Other chest pain (principal); Z82.49 Family history of ischemic heart disease and other diseases of the circulatory system
CPT/HCPCS: 93306

== ENCOUNTER → 2023-09-28 15:48 | Outpatient (BNV) | payer OTHER, SELFPAY | PROVIDERS: PCP Nurse Practitioner Family; Visit Provider Internal Medicine Cardiovascular Disease | DX: R07.89 Other chest pain (principal) | CPT/HCPCS: 93306 ==

== ENCOUNTER 2023-10-01 08:09 | Outpatient (REF) | payer OTHER, SELFPAY ==
[2023-10-01 11:20] LABS: MANUAL DIFF FLAG NO
[2023-10-01 11:28] LABS: Appearance Urine Clear; Color Urine Yellow; Glucose Urine UA Negative (Negative); Leukocyte Esterase Urine Negative (Negative); Nitrite Urine Negative (Negative); PH 7.5 (5.0-9.0); Specific Gravity - Urine 1.015 (1.005-1.025); Urine Blood Negative (Negative); Urine Ketones Negative (Negative); Urine Protein Negative (Neg-Trace)
[2023-10-01 11:31] LABS: Basophils Absolute Auto 0.1 X10*3/uL (0.0-0.2); Eosinophils Absolute Auto 0.1 X10*3/uL (0.0-0.4); Eosinophils Percent Auto 2.9 % (0-4); Hematocrit 46.7 % (42.0-52.0); Hemoglobin 15.3 g/dl (14.0-18.0); Imm Gran Abs Auto 0.03 X10*3/uL (0.00-0.03); Imm Gran Pct Auto 0.7 % (0.0-0.4); Lymphocytes Absolute Auto 1.5 X10*3/uL (1.2-4.9); Lymphocytes Percent Auto 34.5 % (20-40); Mean Corpuscular HGB Conc 32.8 g/dl (31.0-36.0); Mean Corpuscular Volume 88.4 fL (80.0-98.0); Mean Platelet Volume 10.3 fL (9.4-12.4); Monocytes Absolute Auto 0.5 X10*3/uL (0.1-1.2); Monocytes Percent Auto 10.7 % (2-11); Neutrophils Absolute Auto 2.2 x10*3/uL (2.0-8.3); Neutrophils Percent Auto 49.2 % (45-73); Platelet Count 293 X10*3/uL (160-400); Red Blood Count 5.28 X10*6/uL (4.60-5.80); Red Cell Distribution Width 13.5 % (11.0-16.0); White Blood Count 4.4 X10*3/uL (4.8-10.8)
[2023-10-01 12:18] LABS: Alanine Aminotransferase 22 U/L (0-40); Albumin Level 4.1 g/dL (3.5-5.0); Alkaline Phosphatase 57 U/L (39-117); Anion Gap 12 (12-20); Aspartate Amino Transferase 14 U/L (5-37); Bilirubin Total 0.8 mg/dL (0.0-1.0); Blood Urea Nitrogen 12 mg/dL (9-16); Carbon Dioxide 22 mmol/L (22-29); Chloride 109 mmol/L (96-108); Cholesterol 143 mg/dL (<200); Estimated Glomerular Filt Rate > 60; Glucose Fasting 108 mg/dL (60-99); HDL Cholesterol 39 mg/dL (>40); LDL Cholesterol Calculated 91 mg/dL (<100); Potassium 4.2 mmol/L (3.3-5.1); Sodium 139 mmol/L (135-145); Total Protein 6.9 g/dL (6.5-8.0); Triglycerides 66 mg/dL (<150)
[2023-10-01 12:19] LABS: Prostate Specific Antigen Scr 1.69 ng/mL (<0.05-4.0)
== END 2023-10-01 08:10 | disposition home or self-care (01) ==
LOC: HO.HMGCLDS 08:09
PROVIDERS: PCP Nurse Practitioner Family; Visit Provider Nurse Practitioner Family
DX: Z00.00 Encounter for general adult medical examination without abnormal findings (principal); Z12.5 Encounter for screening for malignant neoplasm of prostate
CPT/HCPCS: 36415; 80053; 80061; 81003; 84153; 84443; 85025

== ENCOUNTER 2023-11-16 08:26 | Outpatient (AMB) | payer OTHER, SELFPAY ==
--- NOTE | 2023-11-16 08:40 | MHC.OFFVIS ---
Intake Vital Signs 11/16/23 08:42 Height 5 ft 10 in Weight 250 lb BMI 35.9 BP 140/74 H Blood Pressure Location Lt brachial Position Sitting Pulse 68 Intake Visit Reasons: pre colonoscopy screening Intake Note: Patient follow up for 2nd pre colonoscopy. Patient denies any GI issues. 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 Villegas-returns for 3 year repeat colonoscopy He has no GI complaints Appetite is good Bowels are normal He works full-time No cardiac or respiratory No nausea, vomiting, hematemesis, hematochezia, abdominal pain fever or chills [facility] Medical History (Updated 11/16/23 @ 11:56 by Shayy Monge PA-C) Hernia Hypertension Family History Father Heart attack Substance use disorder Paternal Grandfather Heart attack Mother Diabetes Mental health disorder Maternal Grandmother Colon cancer Social History Household Members: Spouse Housing: House Alcohol intake: never Patient Tobacco Use Status: Never used Tobacco e-Cigarette/Vaping Use: Never Used Second Hand Smoke Exposure: No Current occupational status: employed 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 Current occupational exposures/hazards: Yes Cognitive needs: No Hearing needs: No Vision needs: No Review of Systems Const All systems reviewed & are unremarkable except as noted in HPI and below Card Denies chest pain and Denies dyspnea Resp Denies dyspnea GI Denies abdominal pain and Denies heartburn Physical Exam Vital Signs: Last Vital Signs Pulse 68 11/16/23 08:42 BP 140/74 H 11/16/23 08:42 BMI result Body Mass Index 35.9 Const General: cooperative, healthy appearing, comfortable and no acute distress Orientation/consciousness: patient oriented x3 Limitations: no limitations Eyes Sclerae: sclerae normal Resp Effort & Inspection: normal respiratory effort and able to speak in complete sentences Auscultation: clear to auscultation bilaterally, no rales, no rhonchi and no wheezes Cardio Rate: regular rate Rhythm: regular rhythm Heart sounds: S1 normal heart sound present and S2 normal heart sound present GI Palpation (GI): Soft to palpation and nontender Auscultation: normal bowel sounds Skin General skin exam: no rashes or lesions noted Neuro General: patient oriented x3 Extrem General: Yes full ROM Psych Appearance: grossly normal and well kempt Mental Status: mental status grossly normal Speech and movement: Normal speech and movement present and Clear speech present Affect: normal affect Attitude: cooperative Thought process: Normal thought process present Thought content: Normal thought content present Insight: Good insight present (Psych) Judgement: Good judgement present (Psych) Assessment & Plan Assessment & Plan (1) Colon adenoma: Comment: Family history colon cancer, due for Repeat colonoscopy All first-degree relatives should begin screening no later than age 40 Code(s): D12.6 - Benign neoplasm of colon, unspecified Plan: colonoscopy (2) Diverticular disease: Comment: High-fiber diet Code(s): K57.90 - Diverticulosis of intestine, part unspecified, without perforation or abscess without bleeding Plan: ER protocol HFD Orders: Orders Colonoscopy - GI Use Only Today D12.6 - Benign neoplasm of colon, unspecified Medications: New bisacodyl (Dulcolax (bisacodyl)) Day before procedure @ 12 noon Take 4 tablets by mouth followed by large glass of water 20 mg (4 x 5 mg) PO ONCE 1 day PRN 4 tabs 0RF colonoscopy prep Z12.11 - Encounter for screening for malignant neoplasm of colon polyethylene glycol 3350 (Miralax) Take as directed by mouth the day before your procedure. 238 grams PO ONCE 1 day PRN 238 grams 0RF laxative effect Patient Instructions: polyp surveillance Colonoscopy MG prep-, reviewed, lit given Call with concerns Diverticulosis/itis- ER protocol Coding Level of Care Code Est Pt Level 3 (66781) Diagnoses Colon adenoma D12.6 Diverticular disease K57.90 Time Spent (min) 30
[2023-11-16 08:42] VITALS: BP 140/74; PULSE 68; BMI 35.9
== END 2023-11-16 09:06 | disposition home or self-care (01) ==
PROVIDERS: PCP Nurse Practitioner Family; Visit Provider Physician Assistant
DX: D12.6 Benign neoplasm of colon, unspecified (principal); K57.90 Diverticulosis of intestine, part unspecified, without perforation or abscess without bleeding
CPT/HCPCS: 99213

== ENCOUNTER → 2023-11-16 08:26 | Outpatient (BNVA) | payer OTHER, SELFPAY | PROVIDERS: PCP Nurse Practitioner Family; Visit Provider Physician Assistant ==

== ENCOUNTER 2024-04-13 09:16 | Day surgery (SDC) | payer OTHER, SELFPAY ==
[2024-04-13 09:24] VITALS: BMI 33.4
[2024-04-13] MEDS: Lactated Ringers 1,000 ML 100 ML IVCONT (09:29)
[2024-04-13 09:38] VITALS: BP 133/95; PULSE 86; RESP 18; TEMP 36.7; O2SAT 96
--- NOTE | 2024-04-13 10:19 | HO.ANESPROP2 ---
HPI - Anesthesia Eval Consult details Narrative: 53 yo male patient for Colonoscopy PMF Active Problems Active Problems: All Active Problems (Updated 04/13/24 @ 09:44 by Silvia Holly RN) Family history of heart disease (Acute) Chest pressure (Acute) Lumbar back pain (Acute) Screening for prostate cancer (Acute) Epididymal cyst (Acute) Hemorrhoids (Acute) Diverticular disease (Acute) Colon adenoma (Acute) Scrotal pain (Acute) Whole body pain (Acute) Palpitations (Acute) Erectile dysfunction (Acute). Sildenafil >2weeks ago Screening for colon cancer (Acute) HTN (hypertension) (Acute) Physical exam (Acute) SHERRELL. Uses CPAP Past Medical History Medical History (Updated 04/13/24 @ 09:44 by Silvia Holly RN) Obstructive sleep apnea on CPAP Hernia Hypertension Family History Family History Father Heart attack Substance use disorder Paternal Grandfather Heart attack Mother Diabetes Mental health disorder Maternal Grandmother Colon cancer Family history of problems with anesthesia: No Surgical History Surgical History History of umbilical hernia repair Hx of colonoscopy History of Problems with Anesthesia: No Social History Social History Household Members: Spouse Housing: House Alcohol intake: never Patient Tobacco Use Status: Never used Tobacco e-Cigarette/Vaping Use: Never Used Second Hand Smoke Exposure: No Are you DNR?: No Advance Directives: No Advance Directives Information Provided: Yes Nutrition Risks: No Nutritional Risk Current occupational status: employed 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 Current occupational exposures/hazards: Yes Cognitive needs: No Hearing needs: No Vision needs: No Meds Allergies Allergy/AdvReac Type Severity Reaction Status Date / Time No Known Allergies Allergy Verified 04/13/24 09:27 Active Medications: Current Medications Lactated Ringer's (Lr) 1,000 mls @ 100 mls/hr IVCONT .Q10H ISMAEL Last Admin: 04/13/24 09:29 Dose: 100 mls/hr Home Medications ?Medication ?Instructions ?Recorded ?Confirmed ?Last Taken ?Type aspirin 81 mg tablet,delayed 81 mg PO DAILY 12/10/20 04/13/24 04/11/24 History release (Adult Low Dose Aspirin) Exam Height,Weight and Vital Signs: Height 5 ft 10 in Weight 105.687 kg Last Vital Signs Temp 98.0 F 04/13/24 09:38 Pulse 86 04/13/24 09:38 Resp 18 04/13/24 09:38 BP 133/95 H 04/13/24 09:38 Pulse Ox 96 04/13/24 09:38 O2 Del Method Room Air 04/13/24 09:38 Airway Mallampati Class: II TM Dist: >3cm Neck ROM: Full Loose/Missing/Broken Teeth: No (Denies broken, loose, missing teeth ) Heart: RRR Lungs: CTAB Assessment and Plan Assessment Anesthesia Assessment: Anesthesia Plan Discussed and Chart Reviewed Final Anesthetic Review Family History of Problems with Anesthesia: No History of Problems with Anesthesia: No NPO: Yes ASA Class: III Final Preanesthetic Review: No Changes in Pt Med Stat, Meds/Allgs Chart Reviewed, Consent Obtained/Reviewed and Anes Risks/Benef Reviewed Patient Risk: Intermediate Procedure Risk: Low Assessment/Block/Sedation in SS: Assess/Block/Sedation-SS Anesthetic Plan Anesthetic Plan: TIVA Disposition: Standard PACU
--- NOTE | 2024-04-13 10:41 | MHC.SHP ---
Pre-Procedural Eval Section A - 24 Hr Update-Section A only Date of Service: 04/13/24 The patient is an INPATIENT: No The patient has been examined within 24 hours of the surgical procedure. The History & Physical has been completed within 30 days and I have reviewed it.: No Section B - Complete if H&P > 30 days Chief Complaint: Surveillance of colon polyps Details of Present Illness: colon cancer screening, family history of colon cancer (GM in her 60's) Relevant Family History (Specify if Yes): Yes Relevant Social History: None Present Medications: see Short Stay Collaborative assessment Medical History: Significant History (Hernia Hypertension) History of Previous Operations: No relevant previous surgery Allergies: Allergies Allergy/AdvReac Type Severity Reaction Status Date / Time No Known Allergies Allergy Verified 04/13/24 09:27 Review of Systems Sugical H&P ROS: Negative: Constitution, Cardiovascular, Respiratory and Gastrointestinal Exam Surgical H&P Exam: Normal: Heart, Normal: Lungs, Normal: Extremities and Normal: Abdomen Plan Diagnosis/Plan: Unchanged I have reviewed the history and physical and performed a pertinent physical examination on my patient. No changes have occurred unless specified. Time Spent With Patient Time: Total time managing care of this patient today ____ minutes.
--- NOTE | 2024-04-13 11:14 | HO.OPN-COLON ---
Colonoscopy Operative Note Operative Note Date of Service: 04/13/24 Narrative: COLONOSCOPY TILL CECUM WITH BIOPSIES AND SNARE POLYPECTOMY Pre-op diagnosis: Surveillance for colon polyps, family history of colon cancer (Mat GM in her 60's) Post-op diagnosis:? Colon polyps, Diverticulosis, hemorrhoids Endoscopist:? Chacha Villegas MD Anesthesia:?MAC Consent: Indications for the procedure and potential complications of bleeding, perforation, reaction to medications and missed diagnosis were discussed with the patient and informed consent was obtained. Instrument: Olympus CF H 190 L variable stiffness adult colonoscope Monitoring: Vital signs and clinical assessment, intermittent blood pressure monitoring, continuous EKG monitoring, Pulse oximetry and Carbon Dioxide monitoring were done throughout the procedure. Please see anesthesia flowsheet. Colon withdrawl time was 19 minutes. Procedure: The patient was placed in the left lateral decubitis position and pre-procedure medications were administered. After a digital rectal examination of the ano-rectum, the video colonoscope was inserted into the rectum and advanced through the colon to the cecum. The colonoscope was slowly withdrawn in a retrograde panoramic fashion and the colon mucosa was carefully examined including a retroflexed view of the rectum. Findings and interventions are described below. Procedure Difficulty: without difficulty Findings: Terminal Ileum: Not evaluated Cecum: Normal Ascending Colon: A 6-7 mm sessile polyp in the proximal AC - removed with a cold snare Transverse Colon: Normal Descending Colon: Moderate diverticulosis Sigmoid Colon: Moderate diverticulosis Rectum: A 5-6 mm diminutive appearing polyp - removed with a cold biopsy Ano-rectum: Moderate internal hemorrhoids Colon preparation: Excellent after some irrigation. [place] Bowel Preparation Scale Right colon; 3 Transverse colon: 3 Left colon; 3 (0 = Unprepared colon segment with mucosa not seen due to solid stool that cannot be cleared. 1 = Portion of mucosa of the colon segment seen, but other areas of the colon segment not well seen due to staining, residual stool and/or opaque liquid. 2 = Minor amount of residual staining, small fragments of stool and/or opaque liquid, but mucosa of colon segment seen well. 3 = Entire mucosa of colon segment seen well with no residual staining, small fragments of stool or opaque liquid) Impression and Post Procedure Diagnosis: Colonoscopy Findings: Two small polyps were removed Moderate diverticulosis seen in the left colon Moderate hemorrhoids on retroflexed exam. Plan: I will send a letter with biopsy results Repeat Colonoscopy in 5 years if polyps are adenomatous and due to history of adenomatous colon polyps. Above findings were reviewed with the patient and relevant handouts were given and the discharge area.
[2024-04-13 11:18] VITALS: BP 100/65; PULSE 69; RESP 20; TEMP 36.6; O2SAT 95
[2024-04-13 11:28] VITALS: BP 121/84; PULSE 72; RESP 20; TEMP 36.6; O2SAT 96
== END 2024-04-13 12:13 | disposition home or self-care (01) ==
PROVIDERS: PCP Nurse Practitioner Family; Visit Provider Internal Medicine Gastroenterology
PROC: 0DJD8ZZ Inspection of Lower Intestinal Tract, Via Natural or Artificial Opening Endoscopic (ICD-10-PCS; CPT 45378; principal; 2024-04-13 11:10)
DX: Z12.11 Encounter for screening for malignant neoplasm of colon (principal); Z86.010 Personal history of colon polyps; Z80.0 Family history of malignant neoplasm of digestive organs; K63.5 Polyp of colon; K62.1 Rectal polyp; K57.30 Diverticulosis of large intestine without perforation or abscess without bleeding; K64.8 Other hemorrhoids; I10 Essential (primary) hypertension; G47.33 Obstructive sleep apnea (adult) (pediatric); Z99.89 Dependence on other enabling machines and devices; Z79.899 Other long term (current) drug therapy; Z79.82 Long term (current) use of aspirin
CPT/HCPCS: 45385; 45380; 88305; J2704

== ENCOUNTER → 2024-04-13 09:16 | Outpatient (BNV) | payer OTHER, SELFPAY | PROVIDERS: PCP Nurse Practitioner Family; Visit Provider Internal Medicine Gastroenterology | DX: Z12.11 Encounter for screening for malignant neoplasm of colon (principal); Z86.010 Personal history of colon polyps; Z80.0 Family history of malignant neoplasm of digestive organs; K63.5 Polyp of colon; K57.90 Diverticulosis of intestine, part unspecified, without perforation or abscess without bleeding; K64.8 Other hemorrhoids | CPT/HCPCS: 45380; 45385 ==

== ENCOUNTER 2024-10-01 07:23 | Outpatient (REF) | payer OTHER, SELFPAY ==
[2024-10-01 10:00] LABS: Appearance Urine Clear; Color Urine Yellow; Glucose Urine UA Negative (Negative); Leukocyte Esterase Urine Trace (Negative); Nitrite Urine Negative (Negative); PH 6.5 (5.0-9.0); UMIC TRIGGER UACC YES; Urine Blood Negative (Negative); Urine Ketones Negative (Negative); Urine Protein Negative (Neg-Trace)
[2024-10-01 10:03] LABS: Bacteria Urine None Seen (None Seen); RBC Urine 0-2 /HPF (0-2); Squamous Epithelial Cell Urine 0-2 /HPF (0-2); WBC Urine 0-5 /HPF (0-5)
[2024-10-01 10:08] LABS: MANUAL DIFF FLAG NO
[2024-10-01 10:16] LABS: Basophils Absolute Auto 0.1 X10*3/uL (0.0-0.2); Basophils Percent Auto 1.3 % (0-2); Eosinophils Absolute Auto 0.1 X10*3/uL (0.0-0.4); Eosinophils Percent Auto 2.4 % (0-4); Hematocrit 46.4 % (42.0-52.0); Hemoglobin 15.4 g/dl (14.0-18.0); Imm Gran Abs Auto 0.03 X10*3/uL (0.00-0.03); Imm Gran Pct Auto 0.7 % (0.0-0.4); Lymphocytes Absolute Auto 1.3 X10*3/uL (1.2-4.9); Lymphocytes Percent Auto 29.8 % (20-40); Mean Corpuscular HGB Conc 33.2 g/dl (31.0-36.0); Mean Corpuscular Hemoglobin 29.4 pg (27.0-33.0); Mean Corpuscular Volume 88.7 fL (80.0-98.0); Mean Platelet Volume 10.5 fL (9.4-12.4); Monocytes Absolute Auto 0.4 X10*3/uL (0.1-1.2); Monocytes Percent Auto 9.8 % (2-11); Neutrophils Absolute Auto 2.5 x10*3/uL (2.0-8.3); Platelet Count 289 X10*3/uL (160-400); Red Blood Count 5.23 X10*6/uL (4.60-5.80); Red Cell Distribution Width 13.8 % (11.0-16.0); White Blood Count 4.5 X10*3/uL (4.8-10.8)
[2024-10-01 11:05] LABS: Alanine Aminotransferase 40 U/L (0-40); Albumin Level 4.3 g/dL (3.5-5.0); Alkaline Phosphatase 59 U/L (39-117); Anion Gap 8 (12-20); Aspartate Amino Transferase 22 U/L (5-37); Bilirubin Total 0.4 mg/dL (0.0-1.0); Blood Urea Nitrogen 10 mg/dL (9-16); Calcium 9.1 mg/dL (8.4-10.2); Carbon Dioxide 24 mmol/L (22-29); Chloride 111 mmol/L (96-108); Cholesterol 158 mg/dL (<200); Estimated Glomerular Filt Rate > 60; Glucose Fasting 105 mg/dL (60-99); HDL Cholesterol 44 mg/dL (>40); LDL Cholesterol Calculated 103 mg/dL (<100); Potassium 4.1 mmol/L (3.3-5.1); Sodium 139 mmol/L (135-145); Total Protein 7.3 g/dL (6.5-8.0); Triglycerides 58 mg/dL (<150)
[2024-10-01 11:11] LABS: Prostate Specific Antigen Scr 1.79 ng/mL (<0.05-4.0)
[2024-10-01 11:25] LABS: TSH reflex Free T4 1.73 uIU/mL (0.32-4.0)
== END 2024-10-01 07:24 | disposition home or self-care (01) ==
LOC: HO.HMGCLDS 07:23
PROVIDERS: PCP Nurse Practitioner Family; Visit Provider Nurse Practitioner Family
DX: Z00.00 Encounter for general adult medical examination without abnormal findings (principal); L98.9 Disorder of the skin and subcutaneous tissue, unspecified; J98.9 Respiratory disorder, unspecified; I10 Essential (primary) hypertension; R97.20 Elevated prostate specific antigen [PSA]; Z12.5 Encounter for screening for malignant neoplasm of prostate
CPT/HCPCS: 36415; 80053; 80061; 81001; 81003; 84153; 84443; 85025; 96127

== ENCOUNTER 2024-10-01 07:23 | Outpatient (AMB) | payer OTHER, SELFPAY ==
--- NOTE | 2024-10-01 07:38 | MHC.PC.OV ---
Vital Signs 10/01/24 07:40 10/01/24 08:01 Height 5 ft 10 in Weight 251 lb BMI 36.0 BP 138/90 H 136/88 Blood Pressure Location Lt brachial Rt brachial Position Sitting Sitting Pulse 75 Pulse Source Pulse Oximeter Temp 98.1 F Temp Source Oral Pulse Oximetry (%) 96 Oxygen Delivery Method Room Air Intake Visit Reasons: PE Allergies No Known Allergies Allergy (Verified 10/01/24 07:49) Medication List - Last Reconciled 10/01/24 by KAREN Lindsay- amlodipine 5 mg PO DAILY aspirin (Adult Low Dose Aspirin) 81 mg PO DAILY clotrimazole-betamethasone 1-0.05 % 1 appl topical BID 4 weeks sildenafil 100 mg PO DAILY PRN Tobacco use date assessed: 10/01/24 Dental Screening Dental Screen Date: 10/01/24 Did you have a dental visit in the last 12 months?: Yes Did you have a dental problem in the last 6 months where you did not have access to dental care?: No Was dental information given to patient?: Patient has dentist HPI PE HPI Details History of Present Illness The patient is a 54-year-old male presenting with a request for a physical examination. He reports a history of a cough that began approximately two weeks ago. The patient initially sought care from an urgent care provider where he reported experiencing slight cough and wheezing. Over time, the cough has improved, though he continues to experience a residual cough (was given azith, prednisone, cough medicine). He denies any associated symptoms such as wheezing (hx of asthma), fevers, or chills, indicating improvement of the initial symptoms. Additionally, the patient denies experiencing other significant concerns such as shortness of breath, chest pain, abdominal pain, constipation, diarrhea, or blood in stool. He reports using continuous positive airway pressure (CPAP) regularly as treatment for sleep apnea. Regarding dermatological concerns, the patient has small, singular macular and crusty skin lesions located on his left biceps and left medial proximal thigh. He has an updated history of colonoscopy without complications and denies any urinary symptoms. The patient chooses to avoid a digital rectal exam for prostate evaluation at this visit. Refused all vaccinations. Health Maintenance - Colonoscopy is up to date. - Blood pressure self-monitoring recommended once to twice a week. -psa ordered, refused NGUYỄN today Social History Review of Systems - Respiratory: Denies shortness of breath. - Cardiovascular: Denies chest pain. - Gastrointestinal: Denies abdominal pain, constipation, diarrhea, blood in stool. -: denies any urinary symptoms - Psychological: Denies depression, anxiety, suicidal ideation, homicidal ideation. Physical Exam General: Cooperative, healthy appearing, comfortable, no acute distress and well developed, obese Orientation: Patient oriented x3 Limitations: No limitations Head: Normal to inspection Ears: Hearing grossly normal bilaterally Nose: Normal external nose present Face and sinus: Normal facial exam Eyes: Appearance normal, both eyes and all related structures Neck: Normal visual inspection and Yes full ROM Respiratory: Normal respiratory effort and able to speak in complete sentences. Clear to auscultation bilaterally Cardiovascular: Regular rate and rhythm. Normal S1 and S2 GI: Normal to inspection. Soft to palpation and nontender Skin: Small, singular macular, crusty lesions noted, one to the left biceps, the other to the left medial proximal thigh Neuro: Patient oriented x3 Extremities: Normal to inspection, no edema Results Plan 1. - Refer the patient to dermatology for evaluation of skin lesions: - Advisement given to continue CPAP therapy for sleep apnea. Discussion Notes During the visit, I discussed the importance of monitoring blood pressure regularly and provided guidance on tracking it at home. I instructed the patient to report any consistently high readings above 140/90. We also reviewed the need for skin lesion assessment, leading to a referral to dermatology. The continual use of CPAP therapy was affirmed as a necessary measure for managing his sleep apnea. The patient elected to defer the digital rectal exam for prostate evaluation during this visit. Patient Instructions - Take blood pressure readings at home once to twice weekly, and notify me via the portal if they are consistently above 140/90. - Continue using CPAP regularly for sleep apnea. - Await details of the dermatology referral for skin lesion assessment. 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 1. Little interest or pleasure in doing things: not at all 2. Feeling down, depressed, or hopeless: not at all 3. Trouble falling or staying asleep, or sleeping too much: not at all 4. Feeling tired or having little energy: not at all 5. Poor appetite or overeating: not at all 6. Feeling bad about yourself - or that you are a failure or have let yourself or your family down: not at all 7. Trouble concentrating on things, such as reading the newspaper or watching television: not at all 8. Moving or speaking so slowly that other people could have noticed. Or the opposite - being so fidgety or restless that you have been moving around a lot more than usual: not at all 9. Thoughts that you would be better off or of hurting yourself in some way: not at all Total score: 0 Depression Screening Interpretation: Negative Depression Screening Done: Yes 75450 - PHQ-9 Billing: Yes Source: Developed by Drs. Erasmo Dee, Sameera De La Vega, Cl Davis and colleagues, with an educational krystyna from [employer]. Thrive Questionnaire Date Thrive assessed: 09/30/24 I am a: Patient What is your living situation today?: I choose not to answer this question Within the past 12 months, did the food you bought not last and you didn't have the money to get more?: I choose not to answer this question Within the past 12 months, did you worry whether your food would run out before you got money to buy more?: I choose not to answer this question Do you have trouble paying for medicines?: I choose not to answer this question Do you have trouble getting transportation to medical appointments?: I choose not to answer this question Do you have trouble paying your heating and electricity bill?: I choose not to answer this question Do you have trouble taking care of your child, family member or friend?: I choose not to answer this question Do you have trouble with day-to-day activities such as bathing, preparing meals, shopping, managing finances, etc.?: I choose not to answer this question Are you currently unemployed and looking for a job?: I choose not to answer this question Are you interested in more education?: I choose not to answer this question Please select the resources that you would like help with: None Currently or been in a relationship where the following occur: I choose not to answer THRIVE Score: 0 AUDIT C Alcohol Use Questionnaire (AUDIT-C) 1. How often do you have a drink containing alcohol?: Monthly or less 2. How many drinks containing alcohol do you have on a typical day when you are drinking?: 1 or 2 3. How often do you have six or more drinks on one occasion?: Never Total Score: 1 XIANG-7 AMB Questionnaire XIANG-7 Date XIANG - 7 assessed: 10/01/24 Feeling nervous, anxious, or on edge: 0 = Not at all Not being able to stop or control worryin = Not at all Worrying too much about different things: 0 = Not at all Trouble relaxin = Not at all Being so restless that it is hard to sit still: 0 = Not at all Becoming easily annoyed or irritable: 0 = Not at all Feeling afraid as if something awful might happen: 0 = Not at all Total XIANG-7 score (0-4 normal; 5-9 mild; 10-14 moderate; 15-21 severe): 0 Source: Developed by Drs. Erasmo Dee, Sameera De La Vega, Cl Davis and colleagues, with an educational krystyna from [employer]. Physical exam (Primary Care) Vital Signs: Last Vital Signs Temp 98.1 F 10/01/24 07:40 Pulse 75 10/01/24 07:40 BP 138/90 H 10/01/24 07:40 Pulse Ox 96 10/01/24 07:40 Oxygen Delivery Method Room Air 10/01/24 07:40 BMI result Body Mass Index 36.0 Tobacco/Smoking Status: Tobacco use Status Tobacco use date assessed 10/01/24 10/01/24 07:43 Patient Tobacco Use Status Never used Tobacco 10/01/24 07:39 e-Cigarette/Vaping Use Never Used 10/01/24 07:39 PHQ-9: PHQ-9 Score PHQ-9: Total score 0 10/01/24 07:39 Depression Screening Interpretation: Negative Thrive Assessment: Date of Thrive Assessment Date Thrive assessed 09/30/24 10/01/24 07:39 Currently or been in a relationship where the following occur: I choose not to answer Coding Level of Care Code Est Pt Prev Care 40-64y(91734) Diagnoses Physical exam Z00.00 Skin lesions L98.9 Respiratory illness J98.9 HTN (hypertension) I10 Additional Codes PHQ-9 - 81586 - PHQ-9 Billing: Yes ([id number]) Assessment & Plan Assessment & Plan (1) Physical exam: Code(s): Z00.00 - Encounter for general adult medical examination without abnormal findings Category: Medical (2) Skin lesions: Code(s): L98.9 - Disorder of the skin and subcutaneous tissue, unspecified Category: Medical (3) Respiratory illness: Code(s): J98.9 - Respiratory disorder, unspecified Category: Medical (4) HTN (hypertension): Code(s): I10 - Essential (primary) hypertension Category: Medical Plan . Orders: Orders Prostate Specific Antigen Scr Today R97.20 - Elevated prostate specific antigen [PSA] UA CC w/rflx Micro + Cult Today Z00.00 - Encounter for general adult medical examination without abnormal findings Lipid Panel Today Z00.00 - Encounter for general adult medical examination without abnormal findings Complete Blood Count Auto Diff Today Z00.00 - Encounter for general adult medical examination without abnormal findings Comprehensive [place]. Panel Fast Today Z00.00 - Encounter for general adult medical examination without abnormal findings TSH reflex Free T4 Today Z00.00 - Encounter for general adult medical examination without abnormal findings Referrals Dermatology Referral L98.9 - Disorder of the skin and subcutaneous tissue, unspecified
[2024-10-01 07:40] VITALS: BP 138/90; PULSE 75; TEMP 36.7; O2SAT 96; BMI 36.0
[2024-10-01 08:01] VITALS: BP 136/88
== END 2024-10-01 08:37 | disposition home or self-care (01) ==
PROVIDERS: PCP Nurse Practitioner Family; Visit Provider Nurse Practitioner Family
DX: Z00.00 Encounter for general adult medical examination without abnormal findings (principal); L98.9 Disorder of the skin and subcutaneous tissue, unspecified; J98.9 Respiratory disorder, unspecified; I10 Essential (primary) hypertension

== ENCOUNTER 2025-03-18 13:30 | Outpatient (REF) | payer OTHER, SELFPAY ==
[2025-03-18 16:42] LABS: MANUAL DIFF FLAG NO
[2025-03-18 17:00] LABS: Hematocrit 44.2 % (42.0-52.0); Hemoglobin 14.6 g/dl (14.0-18.0); Imm Gran Abs Auto 0.02 X10*3/uL (0.00-0.03); Imm Gran Pct Auto 0.4 % (0.0-0.4); Lymphocytes Absolute Auto 1.6 X10*3/uL (1.2-4.9); Mean Corpuscular HGB Conc 33.0 g/dl (31.0-36.0); Mean Corpuscular Hemoglobin 29.3 pg (27.0-33.0); Mean Corpuscular Volume 88.6 fL (80.0-98.0); NRBC Abs Auto 0.000 X10*3/uL (0.0-0.012); NRBC Pct Auto 0.0 /100WBC (0.0-0.2); Platelet Count 310 X10*3/uL (160-400); Red Blood Count 4.99 X10*6/uL (4.60-5.80); White Blood Count 5.4 X10*3/uL (4.8-10.8)
[2025-03-18 17:41] LABS: Appearance Urine Clear; Glucose Urine UA Negative (Negative); PH 5.5 (5.0-9.0); Specific Gravity - Urine 1.015 (1.005-1.025); UMIC TRIGGER UACC YES
== END 2025-03-18 13:31 | disposition home or self-care (01) ==
LOC: HO.HMGCLDS 13:30
PROVIDERS: PCP Nurse Practitioner Family; Visit Provider Nurse Practitioner Family
DX: D72.819 Decreased white blood cell count, unspecified (principal)
CPT/HCPCS: 36415; 81001; 81003; 85025

== ENCOUNTER 2025-04-13 08:27 | Outpatient (REF) | payer OTHER, SELFPAY ==
[2025-04-13 12:14] LABS: Appearance Urine Clear; Glucose Urine UA Negative (Negative); PH 7.5 (5.0-9.0); Specific Gravity - Urine 1.015 (1.005-1.025); UMIC TRIGGER UACC YES
[2025-04-13 12:46] LABS: Anion Gap 11 (12-20); Blood Urea Nitrogen 15 mg/dL (9-16); Calcium 8.9 mg/dL (8.4-10.2); Carbon Dioxide 23 mmol/L (22-29); Chloride 110 mmol/L (96-108); Estimated Glomerular Filt Rate > 60; Potassium 4.0 mmol/L (3.3-5.1); Sodium 140 mmol/L (135-145)
== END 2025-04-13 08:28 | disposition home or self-care (01) ==
LOC: HO.HMGCLDS 08:27
PROVIDERS: Internal Medicine; PCP Nurse Practitioner Family; Visit Provider Nurse Practitioner Family
DX: Z00.00 Encounter for general adult medical examination without abnormal findings (principal); I10 Essential (primary) hypertension; R31.29 Other microscopic hematuria
CPT/HCPCS: 36415; 80048; 81001; 87086; 88112

== ENCOUNTER 2025-04-16 15:17 | Outpatient (REF) | payer OTHER, SELFPAY ==
--- NOTE | ~2025-04-16 | CT_ITS ---
CLINICAL HISTORY: R31.29 - Other microscopic hematuria --- Additional Notes or Special Instructions: n CT abdomen and pelvis with and without contrast Comparison: None provided Findings: Scattered subsegmental atelectasis. Subcentimeter hypodensity in hepatic segment 2 is too small to accurately characterize by CT criteria. Hepatic steatosis. Calcifications in both adrenal glands which may be due to prior infection, hemorrhage, or other etiology. Mild right hydronephrosis. There is an obstructing proximal right ureteral calculus measuring 6 by 9 mm. Nonobstructive right inferior pole nephrolithiasis measuring 11 x 6 mm. No left nephrolithiasis. Right kidney is excreting contrast. Left kidney is excreting contrast. The contrast in the right kidney does not extend inferior to the obstructing right ureteral calculus. Mass in the left adrenal gland contains macroscopic fat and measures 3 cm. This is likely due to myelolipoma. Evaluation is limited because a portal venous phase was not obtained. No bowel obstruction, pneumoperitoneum, or pneumatosis. Fat containing umbilical hernia. Pelvic contents unremarkable. Normal appendix. No acute fracture. Degenerative changes of the spine. Anterolisthesis of L4 on L5 measuring 0.9 cm. IMPRESSION: 1. Mild right hydronephrosis. There is an obstructing proximal right ureteral calculus measuring 6 by 9 mm. 2. Nonobstructive right inferior pole nephrolithiasis measuring 11 x 6 mm. 3. Mass in the left adrenal gland contains macroscopic fat and measures 3 cm. This is likely due to myelolipoma. This document has been electronically signed by: Hever Brandt DO on 04/18/2025 08:44:34
[2025-04-16] MEDS: iohexoL 350 MG/ML 100 ML INFUS..BTL 85 ML IV (16:33)
== END 2025-04-16 15:18 | disposition home or self-care (01) ==
LOC: HO.CT 15:17
PROVIDERS: PCP Nurse Practitioner Family; Visit Provider Nurse Practitioner Family
DX: R31.29 Other microscopic hematuria (principal)
CPT/HCPCS: 74178; Q9967

== ENCOUNTER → 2025-04-16 15:19 | Outpatient (BNV) | payer OTHER, SELFPAY | PROVIDERS: PCP Nurse Practitioner Family; Visit Provider Family Medicine | DX: N13.2 Hydronephrosis with renal and ureteral calculous obstruction (principal) | CPT/HCPCS: 74178 ==

== ENCOUNTER 2025-04-30 14:38 | Outpatient (AMB) | payer OTHER, SELFPAY ==
--- NOTE | 2025-04-30 14:42 | A.OFFVIS_ITS ---
Intake Visit Reasons: Obstruction Stones Intake Note: New Patient is present for OBSTRUCTION STONES Urology Rx: SILDENAFIL Blood Thinners:ASPRIN Imaging completed: 04/18/25 Delivery Person Required: No Accompanied by: Self / Same As Patient Allergies No Known Allergies Allergy (Verified 04/30/25 14:43) HPI Comments Details: Erasmo is a very pleasant male. He is seen for the following urologic conditions - erectile dysfunction - nephrolithiasis New onset nephrolithiasis Had seen primary care and had right-sided flank pain Imaging performed - There is an obstructing proximal right ureteral calculus measuring 6 by 9 mm. Nonobstructive right inferior pole nephrolithiasis measuring 11 x 6 mm. No left nephrolithiasis. Minimal symptoms Recommend ureteroscopy to address stone Printed copy of Imaging provided Erectile dysfunction Progressive Variable response to 50 mg sildenafil Discussed dosing protocol on empty stomach Encouraged to lose 3 BMI points Review in 3 months with 100 mg dosing Epididymal cyst Head of left epididymis with small cyst and discomfort Conservative therapy with NSAIDs Review for potential excision PFSH Medical History Obstructive sleep apnea on CPAP Hernia Hypertension Surgical History History of umbilical hernia repair Hx of colonoscopy Family History Father Heart attack Substance use disorder Paternal Grandfather Heart attack Mother Diabetes Mental health disorder Maternal Grandmother Colon cancer Social History Household Members: Spouse Housing: House Alcohol intake: never Patient Tobacco Use Status: Never used Tobacco e-Cigarette/Vaping Use: Never Used Second Hand Smoke Exposure: No service: No Current occupational status: employed 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 [employer] Current occupational exposures/hazards: Yes Cognitive needs: No Hearing needs: No Vision needs: Yes Review of Systems Const Denies chills and Denies fever(s) Card Reports no additional complaints and Denies syncope Resp Denies cough GI Denies abdominal pain and Denies heartburn Reports as per HPI and Denies change in libido Neuro Denies syncope Psych Denies change in libido Endo Denies change in libido Physical Exam Const General: cooperative, healthy appearing, comfortable and no acute distress Orientation/consciousness: patient oriented x3 HEENT Face and sinus: Yes normal facial exam Mouth: moist mucous membranes Neck Neck: Yes normal visual inspection, Yes full ROM and Yes trachea midline Chest Chest palpation & inspection: normal inspection of the chest Resp Effort & Inspection: normal respiratory effort, able to speak in complete sentences and no respiratory distress GI Inspection: Yes normal to inspection Back/Spine/Pelvis Cervical Spine: normal cervical lordosis Thoracic/Lumbar Spine: thoracic and lumbar spine normal to inspection Skin General skin exam: no rashes or lesions noted Neuro General: patient oriented x3, gait normal, tone normal and moves all extremities Extrem General: Yes normal to inspection and Yes capillary refill normal Assessment & Plan Assessment & Plan (1) Kidney stones: Code(s): N20.0 - Calculus of kidney Category: Medical Plan Ureteroscopy We discussed the nature of the decision and reasonable alternatives for performing ureteroscopy. Options such as medical therapy were discussed. Interventions include chemical dissolution, ESWL, ureteroscopy with laser lithotripsy and stent placement, PCNL. The relative uncertainties and benefits related to each alternate procedure were adequately discussed. General surgical risks including, but not limited to - pain, bleeding, infection, myocardial infarction, pulmonary embolus, deep vein thrombosis and cerebrovascular accident which may result in further hospitalization were discussed. Full disclosure of the procedure as well as all major risks, benefits and complications were discussed including but not limited to damage to the urethra, bladder and kidney infection, damage to the ureter, stent migration or malposition, scarring to the renal pelvis, remnant stone fragments, subsequent stone passage with need for secondary procedures. The overall secondary pr ocedure rate is approximately 10-15%. The overall clearance rate is approximately 90-95%. Success of the procedure in the short-term does not necessarily guarantee that long-term success will be maintained. Suitable follow up will need to be maintained. The patient showed understanding of discussion and wishes to proceed with - cystoscopy, retrograde, ureteroscopy, possible lithotripsy/stone basketing and stent on the right side Medications: New naproxen 500 mg PO BID 28 tabs 0RF 14 days N20.0 - Calculus of kidney Patient Instructions: This note is constructed using voice recognition software. While every effort has been made to ensure accuracy technical administrative assistant errors may have been included. Imaging studies, laboratory and physical exam results were discussed and reviewed in detail. No major barriers to patient understanding were identified. An opportunity to ask questions regarding the treatment plan was provided. All questions were answered. The patient expressed understanding and agreement with the above treatment plan. The patient is aware they should contact our office by phone for worsening of their current condition or the appearance of new urologic symptoms. Compliance is encouraged with any medications and followup testing that is ordered. It is a privilege to participate in the urologic care of your patient. If you have any questions or concerns regarding treatment for the above conditions, or other urologic issues, please do not hesitate to contact me. The office telephone contact is [phone]. Sincerely, Dr Akbar Curtis MD, [facility] - Urology Compassionate Specialist Care for the Genitourinary System Coding Level of Care Code New Pt Level 4 (21272) Diagnoses Kidney stones N20.0
== END 2025-04-30 15:26 | disposition home or self-care (01) ==
LOC: HO.HUSH 14:39
PROVIDERS: PCP Nurse Practitioner Family; Visit Provider Urology
DX: N20.0 Calculus of kidney (principal); Z13.9 Encounter for screening, unspecified
CPT/HCPCS: 99204

== ENCOUNTER → 2025-04-30 14:38 | Outpatient (BNVA) | payer OTHER, SELFPAY | PROVIDERS: PCP Nurse Practitioner Family; Visit Provider Urology | DX: N20.0 Calculus of kidney (principal) | CPT/HCPCS: 81003 ==

== ENCOUNTER 2025-05-13 08:12 | Day surgery (SDC) | payer OTHER, SELFPAY ==
--- NOTE | 2025-05-10 09:06 | P.CONAN_ITS ---
Documented by User: Pema Morales NP 05/10/25 09:06 HPI - Anesthesia Eval Consult details Narrative: 54 yr old male for ?Cystoscopy, Ureteroroscopy, Retro, Laser,with stent placement, right SHERRELL: compliant with CPAP PMFSH Active Problems Active Problems: All Active Problems (Updated 04/18/25 @ 11:58 by ROSALBA Lindsay) Kidney stones (Acute) Hydronephrosis (Acute) Microscopic hematuria (Acute) Leukopenia (Acute) Respiratory illness (Acute) Skin lesions (Acute) Increased prostate specific antigen (PSA) velocity (Acute) Family history of heart disease (Acute) Chest pressure (Acute) Lumbar back pain (Acute) Screening for prostate cancer (Acute) Epididymal cyst (Acute) Hemorrhoids (Acute) Diverticular disease (Acute) Colon adenoma (Acute) Scrotal pain (Acute) Whole body pain (Acute) Palpitations (Acute) Erectile dysfunction (Acute) Screening for colon cancer (Acute) HTN (hypertension) (Acute) Physical exam (Acute) Past Medical History Medical History Obstructive sleep apnea on CPAP Hernia Hypertension Family History Family History Father Heart attack Substance use disorder Paternal Grandfather Heart attack Mother Diabetes Mental health disorder Maternal Grandmother Colon cancer Family history of problems with anesthesia: No Surgical History Surgical History History of umbilical hernia repair Hx of colonoscopy History of Problems with Anesthesia: No Social History Social History Household Members: Spouse Housing: House Alcohol intake: never Patient Tobacco Use Status: Never used Tobacco e-Cigarette/Vaping Use: Never Used Second Hand Smoke Exposure: No Have you been hit, kicked, punched, or otherwise hurt by someone within the past year? 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 Current occupational exposures/hazards: Yes Cognitive needs: No Hearing needs: No Vision needs: Yes Meds Allergies Allergy/AdvReac Type Severity Reaction Status Date / Time No Known Allergies Allergy Verified 04/30/25 14:43 Home Medications ?Medication ?Instructions ?Recorded ?Confirmed ?Last Taken ?Type aspirin 81 mg tablet,delayed 81 mg PO DAILY 12/10/20 0 05/13/25 05/06/25 History release (Adult Low Dose Aspirin) Assessment and Plan Final Anesthetic Review Family History of Problems with Anesthesia: No History of Problems with Anesthesia: No Documented by User: Yuliet Connors MD 05/13/25 08:58 PMF Past Medical History Medical History Obstructive sleep apnea on CPAP Hernia Hypertension Family History Family History Father Heart attack Substance use disorder Paternal Grandfather Heart attack Mother Diabetes Mental health disorder Maternal Grandmother Colon cancer Surgical History Surgical History History of umbilical hernia repair Hx of colonoscopy Social History Social History Household Members: Spouse Housing: House Alcohol intake: never Patient Tobacco Use Status: Never used Tobacco e-Cigarette/Vaping Use: Never Used Second Hand Smoke Exposure: No Have you been hit, kicked, punched, or otherwise hurt by someone within the past year? 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 Current occupational exposures/hazards: Yes Cognitive needs: No Hearing needs: No Vision needs: Yes Meds Allergies Allergy/AdvReac Type Severity Reaction Status Date / Time No Known Allergies Allergy Verified 04/30/25 14:43 Home Medications ?Medication ?Instructions ?Recorded ?Confirmed ?Last Taken ?Type aspirin 81 mg tablet,delayed 81 mg PO DAILY 12/10/20 0 05/13/25 05/06/25 History release (Adult Low Dose Aspirin) Exam Airway Mallampati Class: II TM Dist: >3cm Neck ROM: Full Heart: rrr Lungs: cta Assessment and Plan Assessment Anesthesia Assessment: Anesthesia Plan Discussed and Chart Reviewed Final Anesthetic Review NPO: Yes ASA Class: II Final Preanesthetic Review: No Changes in Pt Med Stat, Meds/Allgs Chart Reviewed and Consent Obtained/Reviewed Patient Risk: Low Procedure Risk: Low Anesthetic Plan Anesthetic Plan: GA Disposition: Standard PACU
[2025-05-10 15:10] VITALS: BMI 37.3
[2025-05-13] VITALS (7 sets, daily range): BP systolic 115–160; BP diastolic 76–97; PULSE 64–77; RESP 16–20; TEMP 36.2–36.4; O2SAT 95–97; BMI 34.4
--- NOTE | ~2025-05-13 | FL_ITS ---
EXAMINATION: FL GUIDANCE ONLY HISTORY: stone right COMPARISON: Correlation is made with a CT of the abdomen and pelvis dated 04/16/2025. TECHNIQUE: Fluoroscopy time: 23.3 seconds. Cumulative Dose: 8.8853 mGy. DAP: 3.5367 mGym2 Images: 6. FINDINGS: Fluoroscopic spot films of the right abdomen demonstrate contrast in the right renal collecting system, which is unremarkable in appearance. There is placement of a nephroureteral stent. FL/FL guidance in OR IMPRESSION: Fluoroscopy during procedure. Please see procedure report for additional information. Electronically signed by: Erasmo Burton MD 05/13/2025 11:20 AM EDT
[2025-05-13] MEDS: Lactated Ringers 1,000 ML 100 ML IVCONT (08:35)
--- NOTE | 2025-05-13 09:39 | MHC.SHP ---
Pre-Procedural Eval Section A - 24 Hr Update-Section A only Date of Service: 05/13/25 The patient is an INPATIENT: No Changes since office visit: No Cold of Flu in the past 2 weeks, No New Medical Problems, No Changes in Medication and No Patient answered all questions The patient has been examined within 24 hours of the surgical procedure. The History & Physical has been completed within 30 days and I have reviewed it.: Yes Section B - Complete if H&P > 30 days Chief Complaint: Calculus of kidney Details of Present Illness: Cystoscopy, right retrograde, right ureteroscopy with laser lithotripsy stent placement Allergies: Allergies Allergy/AdvReac Type Severity Reaction Status Date / Time No Known Allergies Allergy Verified 04/30/25 14:43 Plan I have reviewed the history and physical and performed a pertinent physical examination on my patient. No changes have occurred unless specified. Time Spent With Patient Time: Total time managing care of this patient today ____ minutes.
--- NOTE | 2025-05-13 11:01 | P.OP_ITS ---
Operative Note Operative Note Date of Service: 05/13/25 Narrative: PreOperative Diagnosis: Proximal right ureteric stone, right lower pole renal stone Post Operative Diagnosis: Same Procedure: - cystoscopy, right retrograde - right dilatation of ureteric orifice under fluoroscopy - right ureteroscopy, laser lithotripsy, stone basketing of renal mid pole stone - use of steerable vacuum access sheath - ureteroscopy with laser lithotripsy of lower pole stone - use of steerable vacuum access sheath - right stent placement Surgeon: Dr Akbar Curtis Anesthesia: General Indications for procedure: Present through emergency room with 2 stones. One proximal ureteric stone - 9 mm. One renal lower pole stone 11 mm. Procedure: After informed consent was verified patient was brought to the operating placed in supine position. Anesthesia was administered per protocol. Patient was placed in modified dorsal lithotomy position and prepped and draped in a sterile fashion. Safety pause time-out and side of surgery confirmed. Antibiotics confirmed. A 22 Scottish cystoscope was inserted per urethra. The urethra and bladder were normal in their entirety. Both ureteric orifices were in normal position. The right ureteric orifice was cannulated and a retrograde examination was performed. Filling defects seen in proximal ureter. A Sensor guidewire was placed up to the level of the renal pelvis under fluoroscopy. The stone in the proximal ureter was pushed into the renal pelvis. The rigid cystoscope was removed and the inner cannula of ureteric access sheath was used under fluoroscopy to dilate the ureteric orifice. The steerable vacuum ureteric access sheath was placed and the inner cannula with access wire removed. The digital flexible ureteral scope was placed. The 1st stone was encountered in the upper pole of the kidney. This was the stone that had been in the proximal ureter and emptying pushed back. Using a 274 micron holmium fiber and settings of 6 hertz and 1.0 joules the stone was broken into small pieces. The steerable vacuum access sheath was used to engage the stones and bring them into the sheath allowing for fragmentation and suction of stone debris. The 2nd stone was encountered in the lower pole of the kidney. This was 12 mm. Using the laser fiber this was broken into small fragments. Once this had been broken into small fragments the 1.9 Scottish ZeroTip basket was used to remove stone fragments and withdraw them. The kidney was irrigated with a 4 Scottish ureteric catheter. At the completion of the stone procedure a Sensor wire was placed back into the renal pelvis. The rigid cystoscope was backloaded over the wire and advanced into the bladder. A 6 Scottish by 28 cm double-J stent was placed into the renal pelvis and bladder under a combination of fluoroscopy and direct visualization. Proximal positioning of the stent was confirmed using fluoroscopy. The bladder was emptied. The patient tolerated the procedure well and was extubated in the operating room, and transferred in stable condition to the recovery area. Pathology: Stones Drains: Stent as above [facility] code [id number] describes cystourethroscopy, with ureteroscopy and/or pyeloscopy, with lithotripsy, and ureteral catheterization for steerable vacuum aspiration of the kidney, collecting system, ureter, bladder, and urethra if applicable (must use a steerable ureteral catheter).
== END 2025-05-13 12:38 | disposition home or self-care (01) ==
PROVIDERS: PCP Nurse Practitioner Family; Visit Provider Urology
PROC: (CPT 52356; principal; 2025-05-13 09:50)
DX: N20.0 Calculus of kidney (principal); G47.33 Obstructive sleep apnea (adult) (pediatric); I10 Essential (primary) hypertension
CPT/HCPCS: 52356; 82365; 88300; C1758; C1769; C1894; C2617; J0131; J1100; J1885; J1956; J2003; J2405; J2704; J3010; Q9967

== ENCOUNTER → 2025-05-13 08:12 | Outpatient (BNV) | payer OTHER, SELFPAY | PROVIDERS: PCP Nurse Practitioner Family; Visit Provider Urology | DX: N20.2 Calculus of kidney with calculus of ureter (principal) | CPT/HCPCS: 52356; 74420 ==

== ENCOUNTER 2025-05-30 14:48 | Outpatient (AMB) | payer OTHER, SELFPAY ==
--- NOTE | 2025-05-30 14:49 | MHC.OFFVIS ---
Intake Visit Reasons: Stent removal Intake Note: Patient is present for cystoscopy with stent removal Urology Rx: SILDENAFIL,TAMSULOSIN Blood Thinners:ASPRIN Sole Molder Required: No Accompanied by: Self / Same As Patient Allergies No Known Allergies Allergy (Verified 05/30/25 14:50) HPI Comments Details: Erasmo is a very pleasant male. He is seen for the following urologic conditions - erectile dysfunction - nephrolithiasis Follow-up after ureteroscopy Cystoscopy with stent removal Discussed stone composition Recommend three-month follow-up renal ultrasound and Uro risk Nephrolithiasis Intervention - ureteroscopy - 05/30 - right ureteroscopy Stone composition - Calcium oxalate monohydrate 95% Erectile dysfunction Progressive Variable response to 50 mg sildenafil Discussed dosing protocol on empty stomach Encouraged to lose 3 BMI points Review in 3 months with 100 mg dosing Epididymal cyst Head of left epididymis with small cyst and discomfort Conservative therapy with NSAIDs Review for potential excision PFSH Medical History Obstructive sleep apnea on CPAP Hernia Hypertension Surgical History History of umbilical hernia repair Hx of colonoscopy Family History Father Heart attack Substance use disorder Paternal Grandfather Heart attack Mother Diabetes Mental health disorder Maternal Grandmother Colon cancer Social History Household Members: Spouse Housing: House Alcohol intake: never Patient Tobacco Use Status: Never used Tobacco e-Cigarette/Vaping Use: Never Used Second Hand Smoke Exposure: No service: No Current occupational status: employed 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 Current occupational exposures/hazards: Yes Cognitive needs: No Hearing needs: No Vision needs: Yes Review of Systems Const Denies chills and Denies fever(s) Card Reports no additional complaints and Denies syncope Resp Denies cough GI Denies abdominal pain and Denies heartburn Reports as per HPI and Denies change in libido Neuro Denies syncope Psych Denies change in libido Endo Denies change in libido Physical Exam Const General: cooperative, healthy appearing, comfortable and no acute distress Orientation/consciousness: patient oriented x3 HEENT Face and sinus: Yes normal facial exam Mouth: moist mucous membranes Neck Neck: Yes normal visual inspection, Yes full ROM and Yes trachea midline Chest Chest palpation & inspection: normal inspection of the chest Resp Effort & Inspection: normal respiratory effort, able to speak in complete sentences and no respiratory distress GI Inspection: Yes normal to inspection Back/Spine/Pelvis Cervical Spine: normal cervical lordosis Thoracic/Lumbar Spine: thoracic and lumbar spine normal to inspection Skin General skin exam: no rashes or lesions noted Neuro General: patient oriented x3, gait normal, tone normal and moves all extremities Extrem General: Yes normal to inspection and Yes capillary refill normal Office Procedures Cystoscopy Consent Discussed risk and benefit or proposed procedure with the patient. Information consent for procedure given to the patient. Discussed technical aspects, risks, benefits and alternatives in full. Addressed all of the patient's questions and concerns regarding the procedure. The patient demonstrated knowledge and understanding. They wish to proceed with this procedure. Preparation The patient was prepped in the usual manner. A sail repair person was present and in the room. Genitalia was prepped with betadine solution in a sterile manner. Lidocaine Jelly 2% was placed into the urethra and 16Fr flexible Olympus cystoscope was inserted into the meatus after adequate lubrication. Procedure A well lubricated 16 [place] cystoscope was placed No abnormality noted of urethra during placement Indwelling stent seen within bladder emerging from right ureteric orifices The stent was grasped with a 3 prong grasper and removed without difficulty The patient tolerated the procedure well [id number] DISPOSABLE SCOPE URO-G FLEXIBLE SCOPE Procedure code (CPT) selection complete Office Meds lidocaine HCl 2 % mucosal jelly in applicator Performing Provider: Akbar Curtis MD Performing Location: [facility] Administered by: Johan Davidson LPN on 05/30/25 15:27 Dose Route Admin Location Dispensed Lot Number Expiration Date [facility] [employer] 10 mL intra-urethral 10 mL nitrofurantoin monohydrate/macrocrystals 100 mg capsule Performing Provider: Akbar Curtis MD Performing Location: [facility] Administered by: Jhoan Davidson LPN on 05/30/25 15:27 Dose Route Admin Location Dispensed Lot Number Expiration Date [facility] [employer] 100 mg PO 1 cap naproxen 500 mg tablet Performing Provider: Akbar Curtis MD Performing Location: [facility] Administered by: Johan Davidson LPN on 05/30/25 15:27 Dose Route Admin Location Dispensed Lot Number Expiration Date [employer] 500 mg PO 1 tab Assessment & Plan Assessment & Plan (1) Kidney stones: Code(s): N20.0 - Calculus of kidney Category: Medical Plan Three-month follow-up ultrasound with Uro risk Orders: Orders US renal BI 3 Months N20.0 - Calculus of kidney AMB Cystoscopy Today N13.30 - Unspecified hydronephrosis, N20.0 - Calculus of kidney, R31.29 - Other microscopic hematuria URORISK Today N20.0 - Calculus of kidney Patient Instructions: This note is constructed using voice recognition software. While every effort has been made to ensure accuracy official court interpreter errors may have been included. Imaging studies, laboratory and physical exam results were discussed and reviewed in detail. No major barriers to patient understanding were identified. An opportunity to ask questions regarding the treatment plan was provided. All questions were answered. The patient expressed understanding and agreement with the above treatment plan. The patient is aware they should contact our office by phone for worsening of their current condition or the appearance of new urologic symptoms. Compliance is encouraged with any medications and followup testing that is ordered. It is a privilege to participate in the urologic care of your patient. If you have any questions or concerns regarding treatment for the above conditions, or other urologic issues, please do not hesitate to contact me. The office telephone contact is [phone]. Sincerely, Dr Akbar Curtis MD, [facility] - Urology Compassionate Specialist Care for the Genitourinary System Coding Level of Care Code Est Pt Level 3 (43251) Complex EM visit Add On G2211 Diagnoses Kidney stones N20.0 CPT Codes Cystoscopy - CPT: 71226-Yzgasrhonw ([id number])
== END 2025-05-30 15:45 | disposition home or self-care (01) ==
LOC: HO.HUSH 14:49
PROVIDERS: PCP Nurse Practitioner Family; Visit Provider Urology
DX: N13.30 Unspecified hydronephrosis (principal); N20.0 Calculus of kidney; R31.29 Other microscopic hematuria; Z13.9 Encounter for screening, unspecified
CPT/HCPCS: 52310

== ENCOUNTER → 2025-05-30 14:48 | Outpatient (BNVA) | payer OTHER, SELFPAY | PROVIDERS: PCP Nurse Practitioner Family; Visit Provider Urology | DX: N20.0 Calculus of kidney (principal) | CPT/HCPCS: 52310; 81003 ==